=== PATIENT | female | born 1935 | race Caucasian/White ===

== ENCOUNTER 2016-03-08 15:58 | Day surgery (SDC) | payer MEDICARE, BC ==
[2016-03-03 11:54] VITALS: BMI 23.0
[~2016-03-08 15:58] MED LIST: SODIUM CHLORIDE 0.9% 1,000 ML IV SCH; ceFAZolin 1,000 MG in SODIUM CHLORIDE 0.9% IRRIGATIO 250 ML IRRIGATION ONE; ceFAZolin 2 GM in SODIUM CHLORIDE 0.9% 100 ML IVPB ONE
[2016-03-08 16:52] LABS: Glucose,Whole Blood 130 mg/dL (75-99)
[2016-03-08 16:53] VITALS: RESP 18; TEMP 98.2
[2016-03-08 17:13] LABS: Basophils % (A) 1 %; CH 31.5; CHCM 34.1; Eosinophils # (A) 0.4 k/uL (0-0.7); Eosinophils % (A) 5 %; HDW 2.52; Luc # (Auto) 0.23; Luc % (Auto) 3; Lymphocytes # (A) 1.6 k/uL (1.0-4.8); Lymphocytes % (A) 20 %; MCH 30.9 pg (25.0-35.0); MCHC 33.3 g/dL (31.0-37.0); MCV 92.9 fL (80.0-100.0); Mean Platelet Volume 8.3; Monocytes # (A) 0.7 k/uL (0-1.0); Monocytes % (A) 9 %; Neutrophils # (A) 4.9 k/uL (1.3-7.7); Neutrophils % (A) 63 %; RBC 3.88 m/uL (3.80-5.40); WBC 7.8 k/uL (3.8-10.6)
[2016-03-08] MEDS ORDERED: MIDAZOLAM 2 MG/2 ML VIAL ONE (19:42)
[2016-03-08] MEDS ORDERED: MIDAZOLAM 2 MG/2 ML VIAL IV ONE (19:42)
[2016-03-08] MEDS ORDERED: LIDOCAINE 1% INJ 10MG/ML (20 ML MDV) SQ ONE (19:45)
[2016-03-08] MEDS ORDERED: CARVEDILOL 12.5 MG TAB PO STA (19:55)
[2016-03-08 20:21] VITALS: BP 210/98; PULSE 65
--- NOTE | 2016-03-08 20:29 | PCN ---
Cassy Ramirez is an 80-year-old female who had an ICD implant. Subsequently she had the lateral edge of the wound showed some oozing and dehiscence for about 0.5 cm. Oral antibiotics were administered for about 10 days and then she was brought in for wound debridement. Under full sterile precautions and while receiving IV antibiotics, the scab was removed and a centimeter incision was made and on the lateral aspect of the old incision. Bits of sutures that were undissolved were removed. The area was curetted. It was a very superficial knick. There was no evidence of pus, no evidence of infection. The edges were well healed. The wound was closed primarily with silk sutures and dressed. PLAN: Oral antibiotics for 5 days and then stop. Patient will go home today.
== END 2016-03-08 20:21 | disposition home or self-care (01) ==
LOC: CATHEP 15:58
PROVIDERS: ATTEND Internal Medicine Clinical Cardiac Electrophysiology
DX: T81.31XA Disruption of external operation (surgical) wound, not elsewhere classified, initial encounter (principal); Y71.2 Prosthetic and other implants, materials and accessory cardiovascular devices associated with adverse incidents; Z95.810 Presence of automatic (implantable) cardiac defibrillator; Z79.2 Long term (current) use of antibiotics; I42.9 Cardiomyopathy, unspecified; I50.9 Heart failure, unspecified; I25.10 Atherosclerotic heart disease of native coronary artery without angina pectoris; I44.7 Left bundle-branch block, unspecified; I10 Essential (primary) hypertension; E11.9 Type 2 diabetes mellitus without complications; E78.2 Mixed hyperlipidemia; Z82.49 Family history of ischemic heart disease and other diseases of the circulatory system; Z88.5 Allergy status to narcotic agent; Z87.891 Personal history of nicotine dependence
CPT/HCPCS: 12020; 85025; J2250; J0690; J2001

== ENCOUNTER 2017-07-09 20:03 | Inpatient (IN) | payer BC, MEDICARE ==
--- NOTE | 2017-07-09 20:37 | ED ---
General Adult HPI - General Chief complaint: Chest Pain Stated complaint: SOB/Chest Pressure Time Seen by Provider: 07/09/17 20:09 Source: patient, RN notes reviewed, old records reviewed Mode of arrival: wheelchair Limitations: physical limitation - History of Present Illness Initial comments: 81-year-old female presents for evaluation of central chest pain. She describes this pain as a pressure. It has been present over the past 2 days. She states that currently pain is quite minimal. She has had worsening dyspnea over the past several weeks. No cough or fever. She does have history of CAD, no stents placed according to the patient. She has history of pacemaker defibrillator placement. She has been taking her medications as prescribed. Denies lower extremity swelling. Denies calf tenderness. Denies abdominal pain. Denies nausea vomiting or diarrhea. No diaphoresis associated with her pain. Pain is nonradiating, no shoulder or arm pain. - Related Data Home Medications Medication Instructions Recorded Confirmed Ascorbic Acid [Vitamin C] 500 mg PO DAILY 08/12/15 03/08/16 Aspirin 325 mg PO HS 08/12/15 03/08/16 Glimepiride 4 mg PO BID 08/12/15 03/08/16 Irbesartan/Hydrochlorothiazide 1 tab PO QAM 08/12/15 03/08/16 [Irbesartan-Hctz 300-12.5 mg Tb] Multivitamins, Thera [Multivitamin 1 tab PO DAILY 08/12/15 03/08/16 (formulary)] Cholecalciferol [Vitamin D3] 2,000 unit PO DAILY 01/12/16 03/08/16 Cyanocobalamin (Vitamin B-12) 2,000 mcg PO DAILY 01/12/16 03/08/16 [Vitamin B-12] Spironolactone [Aldactone] 25 mg PO DAILY 01/12/16 03/08/16 Previous Rx's Medication Instructions Recorded Carvedilol 25 mg PO BID #90 tab 01/27/16 Allergies Allergy/AdvReac Type Severity Reaction Status Date / Time codeine AdvReac Nausea & Verified 03/08/16 16:31 Vomiting Review of Systems ROS Statement: Those systems with pertinent positive or pertinent negative responses have been documented in the HPI. ROS Other: All systems not noted in ROS Statement are negative. Past Medical History Past Medical History: Cancer, COPD, Diabetes Mellitus, Hyperlipidemia Additional Past Medical History / Comment(s): HX OF BREAST CANCER, CHRONIC BACK PAIN, HX OF STOMACH ULCER., SEE Dr Rodriguez H&P History of Any Multi-Drug Resistant Organisms: None Reported Past Surgical History: AICD, Breast Surgery, Heart Catheterization Additional Past Surgical History / Comment(s): BILATERAL CATARACT. RIGHT MASTECTOMY., MARV SHOULDER SURGERY. VENOGRAM Past Anesthesia/Blood Transfusion Reactions: No Reported Reaction Type of Cardiac Device: AICD Device Placement Date:: 01/2016 Past Psychological History: No Psychological Hx Reported Smoking Status: Former smoker Past Alcohol Use History: Occasional Past Drug Use History: None Reported - Past Family History Daughter(s) Family Medical History: Cancer Additional Family Medical History / Comment(s): BREAST CANCER Son(s) Family Medical History: Coronary Artery Disease (CAD) Additional Family Medical History / Comment(s): CARDIAC STENT. Sister(s) Family Medical History: Cancer Additional Family Medical History / Comment(s): BREAST CANCER. General Exam Limitations: physical limitation General appearance: alert, in no apparent distress Head exam: Present: atraumatic, normocephalic Eye exam: Present: normal appearance, PERRL Neck exam: Present: normal inspection. Absent: tenderness, meningismus Respiratory exam: Present: normal lung sounds bilaterally. Absent: respiratory distress, wheezes Cardiovascular Exam: Present: regular rate, normal rhythm GI/Abdominal exam: Present: soft. Absent: distended, tenderness Extremities exam: Present: normal inspection, full ROM, normal capillary refill. Absent: pedal edema, calf tenderness Neurological exam: Present: alert, oriented X3, CN II-XII intact. Absent: motor sensory deficit Psychiatric exam: Present: normal affect, normal mood Skin exam: Present: warm, dry, intact. Absent: cyanosis, diaphoretic Course Vital Signs 07/09/17 20:11 Temperature 97.1 F L Pulse Rate 71 Respiratory 17 Rate Blood Pressure 185/73 O2 Sat by Pulse 100 Oximetry EKG Findings - EKG Comments: EKG Findings:: EKG paced rhythm ventricular rate 68, NJ interval 172, QRS duration 182, QTC [address] segment elevation Medical Decision Making - Medical Decision Making 81-year-old female presenting with chest pain for the past 2 days. Pain is minimal at the time my evaluation. EKG shows paced rhythm. Laboratory studies are obtained, white blood cell count 6.6, hemoglobin 12.6, sodium is low at 126. Potassium is high 6.1 which is slightly hemolyzed. This is treated with Kayexalate, calcium gluconate, and normal saline. CO2 is low at 17 and anion gap mildly elevated at 15. Troponin and BNP are negative. Chest x-ray is negative for acute findings. Patient will be admitted for telemetry, serial cardiac enzymes, cardiology consult. Sodium and potassium will be rechecked in the morning. - Lab Data Result diagrams: 07/09/17 20:30 07/09/17 20:30 Lab Results 07/09/17 07/09/17 07/09/17 Range/Units 20:30 20:30 20:30 WBC 6.6 (3.8-10.6) k/uL RBC 4.07 (3.80-5.40) m/uL Hgb 12.6 (11.4-16.0) gm/dL Hct 37.3 (34.0-46.0) % MCV 91.7 (80.0-100.0) fL MCH 30.9 (25.0-35.0) pg MCHC 33.8 (31.0-37.0) g/dL RDW 13.8 (11.5-15.5) % Plt Count 224 (150-450) k/uL Neutrophils % 50 % Lymphocytes % 33 % Monocytes % 9 % Eosinophils % 4 % Basophils % 0 % Neutrophils # 3.3 (1.3-7.7) k/uL Lymphocytes # 2.1 (1.0-4.8) k/uL Monocytes # 0.6 (0-1.0) k/uL Eosinophils # 0.3 (0-0.7) k/uL Basophils # 0.0 (0-0.2) k/uL PT (9.0-12.0) sec INR (<1.2) APTT (22.0-30.0) sec Sodium 126 L (137-145) mmol/L Potassium 6.1 H (3.5-5.1) mmol/L Chloride 94 L (98-107) mmol/L Carbon Dioxide 17 L (22-30) mmol/L Anion Gap 15 mmol/L BUN 23 H (7-17) mg/dL Creatinine 0.60 (0.52-1.04) mg/dL Est GFR (CKD-EPI)AfAm >90 (>60 ml/min/1.73 sqM) Est GFR (CKD-EPI)NonAf 86 (>60 ml/min/1.73 sqM) Glucose 184 H (74-99) mg/dL Calcium 9.0 (8.4-10.2) mg/dL Magnesium 2.1 (1.6-2.3) mg/dL Total Bilirubin 0.9 (0.2-1.3) mg/dL AST 56 H (14-36) U/L ALT 31 (9-52) U/L Alkaline Phosphatase 58 (38-126) U/L Total Creatine Kinase 69 (30-135) U/L CK-MB (CK-2) 0.7 (0.0-2.4) ng/mL CK-MB (CK-2) Rel Index 1.0 Troponin I <0.012 (0.000-0.034) ng/mL NT-Pro-B Natriuret Pep pg/mL Total Protein 7.1 (6.3-8.2) g/dL Albumin 4.5 (3.5-5.0) g/dL Lipase 136 (23-300) U/L Acetone, Qual Negative (Negative) 07/09/17 07/09/17 Range/Units 20:30 20:30 WBC (3.8-10.6) k/uL RBC (3.80-5.40) m/uL Hgb (11.4-16.0) gm/dL Hct (34.0-46.0) % MCV (80.0-100.0) fL MCH (25.0-35.0) pg MCHC (31.0-37.0) g/dL RDW (11.5-15.5) % Plt Count (150-450) k/uL Neutrophils % % Lymphocytes % % Monocytes % % Eosinophils % % Basophils % % Neutrophils # (1.3-7.7) k/uL Lymphocytes # (1.0-4.8) k/uL Monocytes # (0-1.0) k/uL Eosinophils # (0-0.7) k/uL Basophils # (0-0.2) k/uL PT 10.9 (9.0-12.0) sec INR 1.1 (<1.2) APTT 24.7 (22.0-30.0) sec Sodium (137-145) mmol/L Potassium (3.5-5.1) mmol/L Chloride (98-107) mmol/L Carbon Dioxide (22-30) mmol/L Anion Gap mmol/L BUN (7-17) mg/dL Creatinine (0.52-1.04) mg/dL Est GFR (CKD-EPI)AfAm (>60 ml/min/1.73 sqM) Est GFR (CKD-EPI)NonAf (>60 ml/min/1.73 sqM) Glucose (74-99) mg/dL Calcium (8.4-10.2) mg/dL Magnesium (1.6-2.3) mg/dL Total Bilirubin (0.2-1.3) mg/dL AST (14-36) U/L ALT (9-52) U/L Alkaline Phosphatase (38-126) U/L Total Creatine Kinase (30-135) U/L CK-MB (CK-2) (0.0-2.4) ng/mL CK-MB (CK-2) Rel Index Troponin I (0.000-0.034) ng/mL NT-Pro-B Natriuret Pep 111 pg/mL Total Protein (6.3-8.2) g/dL Albumin (3.5-5.0) g/dL Lipase (23-300) U/L Acetone, Qual (Negative) Disposition Clinical Impression: Chest pain, Hyponatremia, Hyperkalemia Disposition: ADMITTED IP TO THIS [facility] Condition: Stable Is patient prescribed a controlled substance at d/c from ED?: No Referrals: Reji Montgomery MD [Primary Care Provider] - 1-2 days Decision to Admit Reason: Admit from EC Decision Date: 07/09/17 Decision Time: 21:44
[2017-07-09 20:47] LABS: Basophils % (A) 0 %; Eosinophils # (A) 0.3 k/uL (0-0.7); Eosinophils % (A) 4 %; HCT 37.3 % (34.0-46.0); HGB 12.6 gm/dL (11.4-16.0); Lymphocytes # (A) 2.1 k/uL (1.0-4.8); Lymphocytes % (A) 33 %; MCH 30.9 pg (25.0-35.0); MCHC 33.8 g/dL (31.0-37.0); MCV 91.7 fL (80.0-100.0); Mean Platelet Volume 8.4; Monocytes # (A) 0.6 k/uL (0-1.0); Monocytes % (A) 9 %; Neutrophils # (A) 3.3 k/uL (1.3-7.7); Neutrophils % (A) 50 %; Platelet Count 224 k/uL (150-450); RBC 4.07 m/uL (3.80-5.40); RDW 13.8 % (11.5-15.5); WBC 6.6 k/uL (3.8-10.6)
--- NOTE | 2017-07-09 20:48 | XR ---
EXAMINATION TYPE: XR chest 2V DATE OF EXAM: 07/09/2017 COMPARISON: 01/27/2016 INDICATION: Chest pain TECHNIQUE: Frontal and lateral views of the chest are obtained. FINDINGS: The heart size is normal. The pulmonary vasculature is normal. The lungs are clear. Electronic device overlies left chest. IMPRESSION: 1. No acute pulmonary process.
[2017-07-09 20:53] LABS: INR 1.1 (<1.2); Partial Thromboplastin Time 24.7 sec (22.0-30.0); Prothrombin Time 10.9 sec (9.0-12.0)
[2017-07-09 20:56] LABS: Anion Gap 15 mmol/L; Carbon Dioxide 17 mmol/L (22-30); Chloride 94 mmol/L (98-107); Glucose 184 mg/dL (74-99); Lipase 136 U/L (23-300); Sodium 126 mmol/L (137-145)
[2017-07-09 20:57] LABS: Potassium 6.1 mmol/L (3.5-5.1)
[2017-07-09 20:58] LABS: ALT 31 U/L (9-52); AST 56 U/L (14-36); Albumin 4.5 g/dL (3.5-5.0); Alkaline Phosphatase 58 U/L (38-126); Blood Urea Nitrogen 23 mg/dL (7-17); Magnesium 2.1 mg/dL (1.6-2.3); Total Bilirubin 0.9 mg/dL (0.2-1.3); Total Protein 7.1 g/dL (6.3-8.2)
[2017-07-09 21:06] LABS: Creatine Kinase 69 U/L (30-135)
[2017-07-09 21:19] LABS: Creatine Kinase MB 0.7 ng/mL (0.0-2.4); Troponin I <0.012 ng/mL (0.000-0.034)
[2017-07-09] MEDS ORDERED: SODIUM POLYSTYRENE SULFONATE 15 GM/60 ML BOTTLE PO ONE (21:28)
[2017-07-09] MEDS ORDERED: CALCIUM CHLORIDE 1,000 MG in SODIUM CHLORIDE 0.9% 100 ML IV ONE (21:28)
[2017-07-09] MEDS ORDERED: NALOXONE 0.4 MG/ML 1 ML VIAL IV PRN (21:38)
[2017-07-09] MEDS ORDERED: ASPIRIN 325 MG TAB PO STA (21:41)
[2017-07-09] MEDS: SODIUM CHLORIDE 0.9% 1,000 ML IV SCH (22:00)
[2017-07-09 22:42] VITALS: RESP 18
[2017-07-09 23:15] VITALS: BMI 22.1
[2017-07-10 06:09] LABS: Glucose,Whole Blood 82 mg/dL (75-99)
[2017-07-10 06:39] LABS: Basophils % (A) 1 %; Eosinophils # (A) 0.3 k/uL (0-0.7); Eosinophils % (A) 6 %; HGB 13.2 gm/dL (11.4-16.0); Lymphocytes # (A) 1.7 k/uL (1.0-4.8); Lymphocytes % (A) 34 %; MCH 31.4 pg (25.0-35.0); Mean Platelet Volume 7.4; Monocytes # (A) 0.5 k/uL (0-1.0); Monocytes % (A) 10 %; Neutrophils # (A) 2.3 k/uL (1.3-7.7); Neutrophils % (A) 45 %; Platelet Count 219 k/uL (150-450); RBC 4.22 m/uL (3.80-5.40); RDW 14.6 % (11.5-15.5); WBC 5.2 k/uL (3.8-10.6)
[2017-07-10 06:49] LABS: ALT 40 U/L (9-52); AST 29 U/L (14-36); Albumin 4.1 g/dL (3.5-5.0); Alkaline Phosphatase 62 U/L (38-126); Anion Gap 15 mmol/L; Blood Urea Nitrogen 16 mg/dL (7-17); Calcium 9.3 mg/dL (8.4-10.2); Carbon Dioxide 21 mmol/L (22-30); Chloride 101 mmol/L (98-107); Glucose 78 mg/dL (74-99); Potassium 3.6 mmol/L (3.5-5.1); Sodium 137 mmol/L (137-145); Total Bilirubin 0.3 mg/dL (0.2-1.3); Total Protein 6.5 g/dL (6.3-8.2)
[2017-07-10 06:59] LABS: Creatine Kinase 51 U/L (30-135)
[2017-07-10 07:12] LABS: Troponin I <0.012 ng/mL (0.000-0.034)
[2017-07-10] MEDS ORDERED: ACETAMINOPHEN TAB 500 MG TAB PO PRN (08:04)
[2017-07-10 08:49] LABS: Creatine Kinase 49 U/L (30-135)
[2017-07-10 09:02] LABS: Creatine Kinase MB 0.9 ng/mL (0.0-2.4); Troponin I <0.012 ng/mL (0.000-0.034)
[2017-07-10] MEDS: SODIUM CHLORIDE 0.9% 1,000 ML IV SCH (11:07)
[2017-07-10 11:41] VITALS: BP 140/64; PULSE 68; TEMP 98
[2017-07-10 11:45] LABS: Glucose,Whole Blood 189 mg/dL (75-99)
[2017-07-10] MEDS ORDERED: CHOLECALCIFEROL 1,000 UNIT TAB PO SCH (15:00)
[2017-07-10] MEDS ORDERED: LOSARTAN 50 MG TAB PO SCH (15:00)
[2017-07-10] MEDS ORDERED: ASPIRIN 81 MG PO SCH (15:00)
[2017-07-10] MEDS ORDERED: HYDROCHLOROTHIAZIDE 12.5 MG CAP PO SCH (15:00)
[2017-07-10] MEDS ORDERED: MULTIVITAMINS, THERA 1 EACH TAB PO SCH (15:00)
[2017-07-10] MEDS ORDERED: GLIMEPIRIDE 4 MG TAB PO SCH (15:00)
[2017-07-10] MEDS ORDERED: ASCORBIC ACID 500 MG TAB PO SCH (15:00)
[2017-07-10] MEDS ORDERED: CYANOCOBALAMIN 500 MCG TAB PO SCH (15:00)
--- NOTE | 2017-07-10 15:18 | HP ---
HISTORY AND PHYSICAL Please note this is a combination of history and physical and discharge summary. HISTORY AND PHYSICAL/DISCHARGE SUMMARY: CHIEF COMPLAINTS: Shortness of breath, chest pain, as well as hyponatremia. HISTORY OF PRESENT ILLNESS: This 81-year-old woman with a past medical history of COPD, diabetes, hypertension, hyperlipidemia, AICD being followed by Dr. Montgomery in the outpatient setting was complaining of shortness of breath and chest discomfort and patient came to [facility] and was admitted for further evaluation and treatment. Shortness of breath was exertional and chest discomfort was mostly felt in the anterior part of the chest. Otherwise the patient also had sodium was 127. Sodium improved after admission. Cardiology saw the patient. Cardiology is planning outpatient followup at this time. There is no history of fever, rigors or chills. No history of headache, loss of consciousness, seizures. PAST MEDICAL HISTORY: COPD, diabetes, hyperlipidemia, AICD. MEDICATIONS: Prior to admission include home medications are: 1. Aldactone 25 mg p.o. daily. 2. Nasal spray. 3. Multivitamins. 6. Vitamin D3. 7. Coreg. 8. Aspirin 320 mg daily. 9. Vitamin C. 10.Tylenol. ALLERGIES: CODEINE. FAMILY HISTORY: History of breast cancer in the family. SOCIAL HISTORY: Occasional alcohol. Previous history of smoking. REVIEW OF SYSTEMS: ENT: Diminished vision. Diminished hearing. CARDIOVASCULAR: S1, S2 muffled. RESPIRATORY: No cough or hemoptysis. GI: No nausea or vomiting. : No dysuria. Nervous system: No numbness or weakness. Allergy/Immunology: No asthma or hayfever. MUSCULOSKELETAL: As mentioned earlier. Hematology/Oncology: No history of anemia. Endocrine: No history of diabetes or hypothyroidism. Constitutional: As mentioned earlier. Dermatology: Negative. Rheumatology: Negative. Psychiatry: As mentioned earlier. PHYSICAL EXAM: Alert and oriented x3. Pulse 68. Blood pressure 140/64, respiration 18. Temperature 98 degrees, pulse ox 100% on room air. HEENT: Conjunctivae normal. NECK: No jugular venous distention. CARDIOVASCULAR: S1, S2 muffled. RESPIRATORY: Breath sounds diminished in the the bases. A few scattered rhonchi and crackles. Expiratory wheezing also present. ABDOMEN: Soft, nontender. No mass palpable. LEGS: No edema no swelling. NERVOUS SYSTEM: Higher functions as mentioned earlier, moves all 4 limbs, no focal deficits. LYMPHATICS: No lymph nodes palpable in the neck, axillae or groin. SKIN: No ulcer, rashes or bleeding. LABS: Sodium 120, potassium 6.1, improved to 137 and 3.6. Other labs are noted. ASSESSMENT: 1. Chest pain possible unstable angina. 2. Chronic obstructive pulmonary disease. 3. Hyponatremia. 4. Mild hypokalemia improved. 5. History of chronic obstructive pulmonary disease. 6. Diabetes type 2. 7. Hyperlipidemia. 8. AICD. 9. History of cardiac catheterization. RECOMMENDATIONS AND DISCUSSION: This 81-year-old woman who presented with multiple complex medical issues, we will monitor the patient closely, continue the current medications, management and symptomatic treatment. I recommend resume the home medications and add Combivent and as well as Cozaar to the current regimen. Avoid diuretics. Repeat labs with Dr. Montgomery. Otherwise, cardiology saw the patient, cleared the patient for discharge. The patient will be discharged in stable condition with guarded prognosis. Please see the medications for medication orders. MMODL / IJN: [id number] / MTDD
[2017-07-10] MEDS ORDERED: CARVEDILOL 12.5 MG TAB PO SCH (17:30)
--- NOTE | 2017-07-10 22:00 | CONS ---
CONSULTATION This is an 81-year-old lady who has a history of a Bi-V ICD who came into the hospital with an episode of shortness of breath. She also had a sharp pain in the chest. The quality of the pain seemed atypical. The pain was very brief. Her shortness of breath has also resolved. She is resting comfortably without symptoms. This lady has a history of nonischemic cardiac cardiomyopathy with mild CAD and she has a biventricular ICD placed by Dr. Rodriguez. She sees Dr. Cash in the outpatient setting. She is resting comfortably without symptoms at the time of my evaluation. Her breathing has improved a lot. She has about a 2-day history of shortness of breath and I am recommending that we perform a D-dimer as well. If this is normal, she can be discharged and see Dr. Cash. The patient is clinically not in heart failure and in no distress whatsoever. PAST MEDICAL HISTORY: 1. Nonischemic cardiomyopathy. 2. Status post Bi-V ICD. 3. Type 2 diabetes mellitus. 4. Hypertension. 5. No evidence of any prior myocardial infarction. The patient also has a prior history of some breast surgery, ICD and unremarkable cardiac cath. She has also shoulder surgery and also mastectomy on the right side. MEDICATIONS: At home include Diovan hydrochlorothiazide 312.5, aspirin 325 mg daily, glimepiride 4 mg b.i.d., vitamin supplements, ascorbic acid and Aldactone 25 mg daily. ALLERGIES: CODEINE. REVIEW OF SYSTEMS: Unremarkable other than above-mentioned facts. EXAMINATION: Blood pressure is 140/70, pulse rate is 68 per minute, regular. HEENT: Unremarkable. Fundus was not examined by me. NECK: Supple. There is JVD of 1 cm. No carotid bruit. Heart exam reveals S1, S2 heard normally, short systolic murmur is audible. Lungs reveal decent air entry. Abdomen is soft, nontender. Lower extremities reveal diminished pulses. No edema. Central nervous system is normal. EKG revealed a sinus mechanism with some ventricular paced beats. LABORATORY DATA: Revealed that her troponin levels are normal. Her BNP is normal. Electrolyte profile is normal. D-dimer also has been checked and is normal. IMPRESSION: 1. Episode of shortness of breath of unclear etiology, does not suggest to be in congestive heart failure. 2. History of nonischemic cardiomyopathy. 3. Status post Bi-V ICD. 4. Type 2 diabetes mellitus. RECOMMENDATIONS: I recommended that we check a D-dimer and if this was normal to increase activity and discharge and she is scheduled to see Dr. Cash in the next few days. Advised her to keep the appointment. It appears her symptoms are very nondescript. There is an element of anxiety as well. However, she can be discharged today on the same medical regimen and see Dr. Cash in the outpatient setting and the D-dimer has been checked and has been found to be normal. Thank you very much for the consult. MMODL / IJN: [id number] /
== END 2017-07-10 15:02 | disposition home or self-care (01) | DRG 303 ==
LOC: EC 20:03 → 6SEL 21:41
PROVIDERS: ADMIT Family Medicine; ATTEND Family Medicine
DX: I25.110 Atherosclerotic heart disease of native coronary artery with unstable angina pectoris (principal); E87.1 Hypo-osmolality and hyponatremia; J44.9 Chronic obstructive pulmonary disease, unspecified; I42.9 Cardiomyopathy, unspecified; E11.9 Type 2 diabetes mellitus without complications; I10 Essential (primary) hypertension; E78.5 Hyperlipidemia, unspecified; E87.6 Hypokalemia; Z95.810 Presence of automatic (implantable) cardiac defibrillator; Z79.82 Long term (current) use of aspirin; Z79.899 Other long term (current) drug therapy; Z88.5 Allergy status to narcotic agent; Z80.3 Family history of malignant neoplasm of breast; Z87.891 Personal history of nicotine dependence
CPT/HCPCS: 36415; 71046; 80053; 82009; 82550; 82553; 83690; 83735; 83880; 84484; 85025; 85379; 85610; 85730; 93005; 96365; 99285

== ENCOUNTER → 2018-10-08 | Outpatient (CLI) | payer MEDICARE ==
[2018-10-08 14:05] LABS: Calcium 10.1 mg/dL (8.4-10.2); Potassium 4.6 mmol/L (3.5-5.1)
--- NOTE | 2018-10-08 14:50 | CT ---
EXAMINATION TYPE: CT brain wo/w con DATE OF EXAM: 10/08/2018 COMPARISON: None INDICATION: left hemispheric slowing DLP: 2089 mGycm, Automated exposure control for dose reduction was used. CONTRAST: None CT of the brain is performed utilizing 3 mm thick sections through the posterior fossa and 3 mm thick sections through the remaining calvarium. Study is performed within 24 hours of arrival to the hosp ital. No abnormal hyperdensity is present to suggest an acute intracranial hemorrhage. No mass lesion is evident. As the left basal ganglion calcification is present. No acute infarcts are evident. Very subtle minimal periventricular white matter ischemic type changes are present. Ventricles and sulci are appropriate for the patient age. Paranasal sinuses and mastoid air cells within the [id number]-ydcu are clear. IMPRESSIONS: 1. Minimal periventricular white matter changes. No acute intracranial process evident.
== END | disposition home or self-care (01) ==
LOC: RADCTMAIN 13:08
PROVIDERS: ATTEND Psychiatry & Neurology Neurology
DX: R90.89 Other abnormal findings on diagnostic imaging of central nervous system (principal); R47.81 Slurred speech
CPT/HCPCS: 82747; 80048; 85652; 82607; 82550; 84443; 86038; 70470; 36415; Q9967

== ENCOUNTER → 2018-10-26 | Outpatient (CLI) | payer MEDICARE ==
--- NOTE | 2018-10-28 20:07 | US ---
EXAMINATION TYPE: US carotid duplex BILAT DATE OF EXAM: 10/26/2018 COMPARISON: NONE CLINICAL HISTORY: 83-year-old female I65.22 Carotid stenosis. TECHNIQUE: Carotid duplex ultrasound examination. Indirect Doppler criteria is utilized. FINDINGS: EXAM MEASUREMENTS: RIGHT: Peak Systolic Velocity (PSV) cm/sec ----- Right CCA: 33.0 ----- Right ICA: 70.7 ----- Right ECA: 33.3 ICA/CCA ratio: 2.1 RIGHT: End Diastole cm/sec ----- Right CCA: 11.3 ----- Right ICA: 24.7 ----- Right ECA: 4.4 LEFT: Peak Systolic Velocity (PSV) cm/sec ----- Left CCA: 46.2 ----- Left ICA: 58.5 ----- Left ECA: 62.1 ICA/CCA ratio: 1.3 LEFT: End Diastole cm/sec ----- Left CCA: 13.3 ----- Left ICA: 19.3 ----- Left ECA: 6.2 VERTEBRALS (direction of flow): Right Vertebral: Antegrade Left Vertebral: Antegrade Rhythm: Normal Sonography notes: Bilateral intimal thickening, plaque bilateral bulb, no elevated velocities. IMPRESSION: 1. Moderate atherosclerotic change at the right bifurcation [id number] on the left. 2. Velocities do not suggest a hemodynamically significant stenosis of either ICA. Criteria for Assigning % of Stenosis / Diameter reduction (Estimation based on the indirect measurements of the internal carotid artery velocities (ICA PSV). 1. Normal (no stenosis)=ICA PSV < 125 cm/s: ratio < 2.0: ICA EDV<40 cm/s. 2. Less than 50% stenosis=ICA PSV < 125 cm/s: ratio < 2.0: ICA EDV<40 cm/s. 3. 50 to 69% stenosis=ICA PSV of 125 to 230 cm/s: ration 2.0 ? 4.0: ICA EDV 40-100 cm/s. 4. Greater than 70% stenosis to near occlusion= ICA PSV > 230 cm/s: ratio > 4.0: ICA EDV > 100 cm/s. 5. Near occlusion= ICA PSV velocities may be low or undetectable: variable ratio and ICA EDV. 6. Total occlusion=unable to detect flow.
== END | disposition home or self-care (01) ==
LOC: RADUSWWP 15:59
PROVIDERS: ATTEND Psychiatry & Neurology Neurology
DX: I65.23 Occlusion and stenosis of bilateral carotid arteries (principal)
CPT/HCPCS: 93880

== ENCOUNTER 2019-12-19 11:37 | Inpatient (IN) | payer MEDICARE ==
[2019-12-19 12:17] LABS: Basophils % (A) 1 %; Eosinophils # (A) 0.2 k/uL (0-0.7); Eosinophils % (A) 4 %; HCT 40.5 % (34.0-46.0); HGB 13.1 gm/dL (11.4-16.0); Lymphocytes # (A) 1.6 k/uL (1.0-4.8); Lymphocytes % (A) 25 %; MCH 31.9 pg (25.0-35.0); MCHC 32.2 g/dL (31.0-37.0); Mean Platelet Volume 8.3; Monocytes # (A) 0.6 k/uL (0-1.0); Monocytes % (A) 10 %; Neutrophils # (A) 3.6 k/uL (1.3-7.7); Neutrophils % (A) 58 %; Platelet Count 259 k/uL (150-450); RBC 4.09 m/uL (3.80-5.40); RDW 13.9 % (11.5-15.5); WBC 6.2 k/uL (3.8-10.6)
[2019-12-19 12:35] LABS: ALT 25 U/L (4-34); AST 36 U/L (14-36); African American GFR (CKD) >90 (>60 ml/min/1.73 sqM); Albumin 4.2 g/dL (3.5-5.0); Alkaline Phosphatase 76 U/L (38-126); Anion Gap 4 mmol/L; Blood Urea Nitrogen 14 mg/dL (7-17); Calcium 8.9 mg/dL (8.4-10.2); Carbon Dioxide 26 mmol/L (22-30); Chloride 102 mmol/L (98-107); Glucose 260 mg/dL (74-99); Magnesium 1.6 mg/dL (1.6-2.3); Non-African American GFR(CKD) 88 (>60 ml/min/1.73 sqM); Sodium 132 mmol/L (137-145); Total Bilirubin 0.9 mg/dL (0.2-1.3); Total Protein 6.7 g/dL (6.3-8.2)
[2019-12-19 12:38] LABS: Potassium 4.8 mmol/L (3.5-5.1)
[2019-12-19 12:44] LABS: INR 1.1 (<1.2); Partial Thromboplastin Time 24.7 sec (22.0-30.0); Prothrombin Time 11.4 sec (9.0-12.0)
--- NOTE | 2019-12-19 12:59 | XR ---
EXAMINATION TYPE: XR chest 2V DATE OF EXAM: 12/19/2019 COMPARISON: 07/09/2017 HISTORY: 84-year-old female with weakness TECHNIQUE: AP and lateral views FINDINGS: Left anterior chest wall AICD generator with right atrial, right ventricular, and coronary sinus lead s. Heart upper limits of normal in size. Aorta and pulmonary vasculature within normal limits. Kyphot ic positioning. Hazy mid to lower lung densities relating to overlying soft tissue. No consolidation or pleural effusion is seen. IMPRESSION: Kyphotic positioning. Borderline heart size. 3-lead AICD generator. No definite acute process.
--- NOTE | 2019-12-19 13:10 | CT ---
EXAMINATION TYPE: CT brain wo con DATE OF EXAM: 12/19/2019 COMPARISON: 10/08/2018 HISTORY: Weakness and fatigue. CT DLP: 1024.4 mGycm Automated exposure control for dose reduction was used. FINDINGS: Mild to moderate generalized degenerative change. Low-attenuation the white matter is nonsignificantl y most typical remote microvascular ischemia. No acute hemorrhage. No mass effect. No midline shift. Calcifications in the basal ganglia noted. Cm varium intact. Craniocervical junction maintained. Tiny area of low attenuation within the basal gang jos bilaterally most typical remote lacunar infarct. Tiny area of low attenuation the left thalamus m ost typical of remote lacunar infarct. Abnormal attenuation within the right temporal lobe and left cerebellar hemisphere. This was not seen on the prior exam. Area of ischemic change in the differential diagnosis. IMPRESSION: 1. Low attenuation within the right temporal lobe and left cerebellum of indeterminate age may repres ent recent ischemia. Recommend correlation with MRI and clinical correlation. 2. No acute hemorrhage. 3. Degenerative and nonspecific white matter changes most typical remote ischemia.
[2019-12-19] MEDS ORDERED: ASPIRIN 325 MG TAB PO STA (13:19)
[2019-12-19 13:39] LABS: Appearance,Urine Clear (Clear); Bilirubin,Urine Negative (Negative); Blood,Urine Negative (Negative); Color,Urine Colorless; Glucose,Urine (UA) 3+ (Negative); Ketones,Urine Negative (Negative); Leukocyte Esterase,Urine Negative (Negative); Nitrite,Urine Negative (Negative); Protein,Urine Negative (Negative); Specific Gravity,Urine 1.005 (1.001-1.035); Urobilinogen,Urine <2.0 mg/dL (<2.0)
--- NOTE | 2019-12-19 14:02 | ED ---
General Adult HPI - General Source: patient, family, EMS, RN notes reviewed, old records reviewed Mode of arrival: EMS <Andrea Carmona - Last Filed: 12/19/19 14:44> <Tobi Aguilar - Last Filed: 12/20/19 09:09> - General Chief complaint: Weakness Stated complaint: Weakness Time Seen by Provider: 12/19/19 11:42 - History of Present Illness Initial comments: 84-year-old female patient past history significant for pacemaker, diabetes, COPD density for generalized weakness. Patient reports that she woke up this morning she was feeling just generally weak. Denies chest pain shortness of breath denies any focal area of weakness or unilateral weakness or paresthesias. Denies any headache. Denies any other acute complaints. Systemic: Pt denies fatigue, fever/chills, rash. Pt denies weakness, night sweats, weight loss. Neuro: Pt denies headache, visual disturbances, syncope or pre-syncope. HEENT: Pt denies ocular discharge or irritation, otalgia, rhinorrhea, pharyngitis or notable lymphadenopathy. Cardiopulmonary: Pt denies chest pain, SOB, heart palpitations, dyspnea on exertion. Abdominal/GI: Pt denies abdominal pain, n/v/d. : Pt denies dysuria, burning w/ urination, frequency/urgency. Denies new onset urinary or bowel incontinence. MSK: Pt denies myalgia, loss of strength or function in extremities. (Andrea Carmona) - Related Data Home Medications Medication Instructions Recorded Confirmed Glimepiride 4 mg PO HS 08/12/15 12/19/19 Multivitamins, Thera [Multivitamin 1 tab PO HS 08/12/15 12/19/19 (formulary)] Ascorbic Acid [Vitamin C] 500 mg PO DAILY 12/19/19 12/19/19 Atorvastatin [Lipitor] 20 mg PO Q48H 12/19/19 12/19/19 Carvedilol 25 mg PO HS 12/19/19 12/19/19 Cholecalciferol [Vitamin D3 (25 1,000 unit PO HS 12/19/19 12/19/19 Mcg = 1000 Iu)] Cyanocobalamin (Vitamin B-12) 2,500 mcg PO HS 12/19/19 12/19/19 [Vitamin B-12] Ferrous Sulfate [Iron (65 MG 325 mg PO HS 12/19/19 12/19/19 Elemental)] Fish Oil/Dha/Epa [Fish Oil 1,200 1 tab PO HS 12/19/19 12/19/19 mg Fish Oil] Memantine [Namenda] 10 mg PO HS 12/19/19 12/19/19 Mv-Min/Folic/Vit K/Lut/Luzz403 1 tab PO HS 12/19/19 12/19/19 [Alive Women's 50 Plus Tablet] Naproxen Sodium [Aleve] 220 mg PO HS PRN 12/19/19 12/19/19 Potassium Gluconate 99 mg PO HS 12/19/19 12/19/19 Spironolactone [Aldactone] 25 mg PO HS 12/19/19 12/19/19 Ubidecarenone [Co Q-10] 200 mg PO HS 12/19/19 12/19/19 Zinc Gluconate [Zinc] 50 mg PO HS 12/19/19 12/19/19 metFORMIN HCL 500 mg PO HS 12/19/19 12/19/19 Allergies Allergy/AdvReac Type Severity Reaction Status Date / Time codeine AdvReac Nausea & Verified 12/19/19 14:36 Vomiting Review of Systems ROS Other: All systems not noted in ROS Statement are negative. <Andrea Carmona - Last Filed: 12/19/19 14:44> ROS Other: All systems not noted in ROS Statement are negative. <Tobi Aguilar - Last Filed: 12/20/19 09:09> ROS Statement: Those systems with pertinent positive or pertinent negative responses have been documented in the HPI. Past Medical History Past Medical History: Cancer, COPD, Diabetes Mellitus, Hyperlipidemia Additional Past Medical History / Comment(s): HX OF BREAST CANCER, CHRONIC BACK PAIN, HX OF STOMACH ULCER., SEE Dr Rodriguez H&P History of Any Multi-Drug Resistant Organisms: None Reported Past Surgical History: AICD, Breast Surgery, Heart Catheterization, Pacemaker Additional Past Surgical History / Comment(s): BILATERAL CATARACT. RIGHT MASTE CTOMY., MARV SHOULDER SURGERY. VENOGRAM Past Anesthesia/Blood Transfusion Reactions: No Reported Reaction Type of Cardiac Device: AICD Device Placement Date:: 01/2016 Past Psychological History: No Psychological Hx Reported Past Alcohol Use History: Occasional Past Drug Use History: None Reported - Past Family History Daughter(s) Family Medical History: Cancer Additional Family Medical History / Comment(s): BREAST CANCER Son(s) Family Medical History: Coronary Artery Disease (CAD) Additional Family Medical History / Comment(s): CARDIAC STENT. Sister(s) Family Medical History: Cancer Additional Family Medical History / Comment(s): BREAST CANCER. <Andrea Carmona - Last Filed: 12/19/19 14:44> General Exam <Andrea Carmona - Last Filed: 12/19/19 14:44> - General Exam Comments Initial Comments: Constitutional: NAD, AOX3, Pt has pleasant affect. HEENT: NC/AT, trachea midline, neck supple, no lymphadenopathy. External ears appear normal, without discharge. Mucous membranes moist. Eyes PERRLA, EOM intact. There is no scleral icterus. No pallor noted. Cardiopulmonary: RRR, no murmurs, rubs or gallops, no JVD noted. Lungs CTAB in anterior and posterior [place]. No peripheral edema. Abdominal exam: Abdomen soft and non-distended. Abdomen non-tender to palpation in all 4 quadrants. Bowel sounds active in LLQ. No hepatosplenomegaly. No ecchymosis Neuro: CN II-XII intact. No nuchal rigidity. No raccon eyes, no carrillo sign. NIH 0. MSK: Full active ROM in upper and lower extremities, 5/5 stregnth. (Andrea Carmona) Course Vital Signs 12/19/19 12/19/19 12/19/19 11:39 11:49 12:30 Temperature 97.4 F L Pulse Rate 74 58 L Respiratory 18 18 Rate Blood Pressure 206/82 186/65 O2 Sat by Pulse 99 99 Oximetry 12/19/19 12/19/19 12/19/19 13:30 14:00 15:00 Temperature Pulse Rate 61 75 Respiratory 18 18 17 Rate Blood Pressure 147/61 156/69 173/65 O2 Sat by Pulse 100 98 100 Oximetry 12/19/19 12/19/19 12/19/19 15:30 16:00 16:30 Temperature Pulse Rate 72 Respiratory 16 Rate Blood Pressure 166/60 147/54 150/73 O2 Sat by Pulse 100 100 99 Oximetry 12/19/19 12/19/19 12/19/19 17:00 17:30 18:00 Temperature Pulse Rate 70 74 Respiratory 18 Rate Blood Pressure 152/57 150/65 136/112 O2 Sat by Pulse 98 99 Oximetry 12/19/19 12/19/19 12/19/19 18:30 19:00 19:30 Temperature Pulse Rate 71 Respiratory Rate Blood Pressure 176/64 164/55 158/74 O2 Sat by Pulse 96 98 97 Oximetry 12/19/19 12/19/19 20:00 20:30 Temperature Pulse Rate 73 Respiratory 18 Rate Blood Pressure 154/68 165/78 O2 Sat by Pulse 98 98 Oximetry Medical Decision Making - Lab Data Result diagrams: 12/19/19 12:02 12/19/19 12:02 - EKG Data -: EKG Interpreted by Me (and Dr. Aguilar ) <Andrea Carmona - Last Filed: 12/19/19 14:44> - Lab Data Result diagrams: 12/19/19 12:02 12/19/19 12:02 <Tobi Aguilar - Last Filed: 12/20/19 09:09> - Medical Decision Making 84 year old female patient to ED for generalized weakness. Patient reports that she woke up weak at 9am. She denies any unilateral weakness, facial droop, paresthesias. Patient vital signs displayed mild hypertension. Physical exam negative for acute pathology. Laboratory Investigations reveal mild hyperglycemia. CXR negative for acute process. Brain CT displayed possible recent ischemia in the tempral lobe. No acute hemorrhage, CTA is limited but there is unable to excluisde a 4x3 mm right MCA aneursym. Patient was adminisreed an aspirin and will be admitted for neurology evaluation. Case discussed and pt seen by Dr. Aguilar. (Andrea Carmona) 34-year-old female history of dementia, history is somewhat limited although according to her daughter who is at bedside she has had increased weakness over the past several weeks. She woke this morning with increased weakness, no lateralizing symptoms. Head CT performed which does show subacute CVA. Compute d tomography geography has been ordered. Patient has been admitted to Dr. Montgomery who is aware of the patient and will be evaluated by neurology. (Tobi Aguilar) - Lab Data Lab Results 11/05/20 11/05/20 11/05/20 Range/Units 12:02 12:02 12:02 WBC 6.2 (3.8-10.6) k/uL RBC 4.09 (3.80-5.40) m/uL Hgb 13.1 (11.4-16.0) gm/dL Hct 40.5 (34.0-46.0) % MCV 99.0 (80.0-100.0) fL MCH 31.9 (25.0-35.0) pg MCHC 32.2 (31.0-37.0) g/dL RDW 13.9 (11.5-15.5) % Plt Count 259 (150-450) k/uL Neutrophils % 58 % Lymphocytes % 25 % Monocytes % 10 % Eosinophils % 4 % Basophils % 1 % Neutrophils # 3.6 (1.3-7.7) k/uL Lymphocytes # 1.6 (1.0-4.8) k/uL Monocytes # 0.6 (0-1.0) k/uL Eosinophils # 0.2 (0-0.7) k/uL Basophils # 0.0 (0-0.2) k/uL PT 11.4 (9.0-12.0) sec INR 1.1 (<1.2) APTT 24.7 (22.0-30.0) sec Sodium (137-145) mmol/L Potassium (3.5-5.1) mmol/L Chloride (98-107) mmol/L Carbon Dioxide (22-30) mmol/L Anion Gap mmol/L BUN (7-17) mg/dL Creatinine (0.52-1.04) mg/dL Est GFR (CKD-EPI)AfAm (>60 ml/min/1.73 sqM) Est GFR (CKD-EPI)NonAf (>60 ml/min/1.73 sqM) Glucose (74-99) mg/dL Plasma Lactic Acid Barry (0.7-2.0) mmol/L Calcium (8.4-10.2) mg/dL Magnesium (1.6-2.3) mg/dL Total Bilirubin (0.2-1.3) mg/dL AST (14-36) U/L ALT (4-34) U/L Alkaline Phosphatase (38-126) U/L Troponin I (0.000-0.034) ng/mL NT-Pro-B Natriuret Pep pg/mL Total Protein (6.3-8.2) g/dL Albumin (3.5-5.0) g/dL Triglycerides (<150) mg/dL Cholesterol (<200) mg/dL LDL Cholesterol, Calc (0-99) mg/dL HDL Cholesterol (40-60) mg/dL Urine Color Colorless Urine Appearance Clear (Clear) Urine pH 7.0 (5.0-8.0) Ur Specific [place] 1.005 (1.001-1.035) Urine Protein Negative (Negative) Urine Glucose (UA) 3+ H (Negative) Urine Ketones Negative (Negative) Urine Blood Negative (Negative) Urine Nitrite Negative (Negative) Urine Bilirubin Negative (Negative) Urine Urobilinogen <2.0 (<2.0) mg/dL Ur Leukocyte Esterase Negative (Negative) Acetone, Qual (Negative) 12/19/19 12/19/19 12/19/19 Range/Units 12:02 12:02 12:02 WBC (3.8-10.6) k/uL RBC (3.80-5.40) m/uL Hgb (11.4-16.0) gm/dL Hct (34.0-46.0) % MCV (80.0-100.0) fL MCH (25.0-35.0) pg MCHC (31.0-37.0) g/dL RDW (11.5-15.5) % Plt Count (150-450) k/uL Neutrophils % % Lymphocytes % % Monocytes % % Eosinophils % % Basophils % % Neutrophils # (1.3-7.7) k/uL Lymphocytes # (1.0-4.8) k/uL Monocytes # (0-1.0) k/uL Eosinophils # (0-0.7) k/uL Basophils # (0-0.2) k/uL PT (9.0-12.0) sec INR (<1.2) APTT (22.0-30.0) sec Sodium 132 L (137-145) mmol/L Potassium 4.8 (3.5-5.1) mmol/L Chloride 102 (98-107) mmol/L Carbon Dioxide 26 (22-30) mmol/L Anion Gap 4 mmol/L BUN 14 (7-17) mg/dL Creatinine 0.52 (0.52-1.04) mg/dL Est GFR (CKD-EPI)AfAm >90 (>60 ml/min/1.73 sqM) Est GFR (CKD-EPI)NonAf 88 (>60 ml/min/1.73 sqM) Glucose 260 H (74-99) mg/dL Plasma Lactic Acid Barry 1.5 (0.7-2.0) mmol/L Calcium 8.9 (8.4-10.2) mg/dL Magnesium 1.6 (1.6-2.3) mg/dL Total Bilirubin 0.9 (0.2-1.3) mg/dL AST 36 (14-36) U/L ALT 25 (4-34) U/L Alkaline Phosphatase 76 (38-126) U/L Troponin I <0.012 (0.000-0.034) ng/mL NT-Pro-B Natriuret Pep pg/mL Total Protein 6.7 (6.3-8.2) g/dL Albumin 4.2 (3.5-5.0) g/dL Triglycerides (<150) mg/dL Cholesterol (<200) mg/dL LDL Cholesterol, Calc (0-99) mg/dL HDL Cholesterol (40-60) mg/dL Urine Color Urine Appearance (Clear) Urine pH (5.0-8.0) Ur Specific [place] (1.001-1.035) Urine Protein (Negative) Urine Glucose (UA) (Negative) Urine Ketones (Negative) Urine Blood (Negative) Urine Nitrite (Negative) Urine Bilirubin (Negative) Urine Urobilinogen (<2.0) mg/dL Ur Leukocyte Esterase (Negative) Acetone, Qual Negative (Negative) 12/19/19 12/19/19 Range/Units 12:02 12:02 WBC (3.8-10.6) k/uL RBC (3.80-5.40) m/uL Hgb (11.4-16.0) gm/dL Hct (34.0-46.0) % MCV (80.0-100.0) fL MCH (25.0-35.0) pg MCHC (31.0-37.0) g/dL RDW (11.5-15.5) % Plt Count (150-450) k/uL Neutrophils % % Lymphocytes % % Monocytes % % Eosinophils % % Basophils % % Neutrophils # (1.3-7.7) k/uL Lymphocytes # (1.0-4.8) k/uL Monocytes # (0-1.0) k/uL Eosinophils # (0-0.7) k/uL Basophils # (0-0.2) k/uL PT (9.0-12.0) sec INR (<1.2) APTT (22.0-30.0) sec Sodium (137-145) mmol/L Potassium (3.5-5.1) mmol/L Chloride (98-107) mmol/L Carbon Dioxide (22-30) mmol/L Anion Gap mmol/L BUN (7-17) mg/dL Creatinine (0.52-1.04) mg/dL Est GFR (CKD-EPI)AfAm (>60 ml/min/1.73 sqM) Est GFR (CKD-EPI)NonAf (>60 ml/min/1.73 sqM) Glucose (74-99) mg/dL Plasma Lactic Acid Barry (0.7-2.0) mmol/L Calcium (8.4-10.2) mg/dL Magnesium (1.6-2.3) mg/dL Total Bilirubin (0.2-1.3) mg/dL AST (14-36) U/L ALT (4-34) U/L Alkaline Phosphatase (38-126) U/L Troponin I (0.000-0.034) ng/mL NT-Pro-B Natriuret Pep 117 pg/mL Total Protein (6.3-8.2) g/dL Albumin (3.5-5.0) g/dL Triglycerides 136 (<150) mg/dL Cholesterol 107 (<200) mg/dL LDL Cholesterol, Calc 38 (0-99) mg/dL HDL Cholesterol 42 (40-60) mg/dL Urine Color Urine Appearance (Clear) Urine pH (5.0-8.0) Ur Specific [place] (1.001-1.035) Urine Protein (Negative) Urine Glucose (UA) (Negative) Urine Ketones (Negative) Urine Blood (Negative) Urine Nitrite (Negative) Urine Bilirubin (Negative) Urine Urobilinogen (<2.0) mg/dL Ur Leukocyte Esterase (Negative) Acetone, Qual (Negative) - EKG Data EKG Comments: ventricular rate 72, VA interval 114, QRS 146, QT/QTc 462/505. Paced rhythm. No concern for acute ischemia at this time. (Andrea Carmona) Disposition Is patient prescribed a controlled substance at d/c from ED?: No <Andrea Carmona - Last Filed: 12/19/19 14:44> <Tobi Aguilar - Last Filed: 12/20/19 09:09> Clinical Impression: Weakness, CVA (cerebral vascular accident) Narrative: Possible subacute CVA (Andrea Carmona) Disposition: ADMITTED IP TO THIS HOSP Condition: Serious
[2019-12-19] MEDS ORDERED: ACETAMINOPHEN TAB 325 MG TAB PO PRN (14:29)
--- NOTE | 2019-12-19 14:29 | CT ---
EXAMINATION TYPE: CT angio head DATE OF EXAM: 12/19/2019 COMPARISON: Correlation CT brain same date HISTORY: 84-year-old female abnormal CT brain, possible ischemia TECHNIQUE: Contiguous axial scanning of the brain performed with IV Contrast, patient injected with 1 00 mL of Isovue 370. Coronal/sagittal MIP reconstructions performed. 3-D reconstructions generated on a dedicated independent workstation. CT DLP: 646.4 mGycm Automated exposure control for dose reduction was used. FINDINGS: Moderate to severe atherosclerotic calcifications at the V3/V4 junction of the right vertebral artery . The right V4 segment is hypoplastic. Moderate atherosclerotic narrowing proximal V4 segment left ve rtebral artery. Proximal to mid vertebral artery is small in caliber patent. Distal vertebral arteries very limited d ue to nondiagnostic due to the extensive patient motion. Atherosclerotic calcifications contributing to mild atherosclerotic narrowing throughout the carotid siphons. Gross patency of the anterior circulation. Unable to exclude a 4 x 3 mm aneurysm of the distal M1 segment right middle cerebral artery, axial im age 130 and coronal image 11. Assessment of the posterior cerebral arteries is very limited due to the motion. Dural venous sinuses are patent. IMPRESSION: 1. EXTENSIVE PATIENT MOTION ARTIFACT. VERY LIMITED EXAM. 2. Hypoplastic V4 segment right vertebral artery with moderate to severe atherosclerotic calcificatio ns at the V3/V4 junction. Additional moderate atherosclerotic narrowing proximal V4 segment left vert ebral artery. 3. Proximal to mid vertebral artery is uniformly small in caliber. Correlate for any chronic symptoms of vertebrobasilar insufficiency. Distal basilar artery is nondiagnostic due to motion. 4. Mild atherosclerotic narrowing throughout the carotid siphons. Gross patency to the anterior circu lation allowing for motion artifacts. 5. Unable to exclude a 4 x 3 mm M1/M2 junction right MCA aneurysm.
[2019-12-19] MEDS: SODIUM CHLORIDE 0.9% 1,000 ML IV SCH (19:02)
[2019-12-20] MEDS: SODIUM CHLORIDE 0.9% 1,000 ML IV SCH ×2 (01:42→09:25)
[2019-12-20 03:02] LABS: Cholesterol 107 mg/dL (<200); HDL Cholesterol 42 mg/dL (40-60); LDL Cholesterol,Calculated 38 mg/dL (0-99); Triglycerides 136 mg/dL (<150)
[2019-12-20 06:30] LABS: Glucose,Whole Blood 201 mg/dL (75-99)
[2019-12-20] MEDS ORDERED: NAPROXEN 250 MG TAB PO PRN (08:24)
--- NOTE | 2019-12-20 08:24 | P.HPIM ---
History of Present Illness H&P Date: 12/20/19 Chief Complaint: Generalized weakness immobility. This is a history and physical an 84-year-old white female known history of diabetes COPD and history of pacemaker who states she has general weakness. Computed tomography scan of the head did show significant subacute infarction and she is now admitted for appropriate neurologic evaluation. She states having difficulty ambulating. No significant chest pain or shortness of breath. No incontinence of bowel or bladder is stated. Review of Systems Constitutional: Denies chills, Denies fever Eyes: denies blurred vision, denies pain Cardiovascular: Denies chest pain, Denies shortness of breath Respiratory: Denies cough Gastrointestinal: Denies abdominal pain, Denies diarrhea, Denies nausea, Denies vomiting Neurological: Reports as per HPI Past Medical History Past Medical History: Cancer, COPD, Diabetes Mellitus, Hyperlipidemia Additional Past Medical History / Comment(s): HX OF BREAST CANCER, CHRONIC BACK PAIN, HX OF STOMACH ULCER., SEE Dr Rodriguez H&P History of Any Multi-Drug Resistant Organisms: None Reported Past Surgical History: AICD, Breast Surgery, Heart Catheterization, Pacemaker Additional Past Surgical History / Comment(s): BILATERAL CATARACT. RIGHT MASTECTOMY., MARV SHOULDER SURGERY. VENOGRAM Past Anesthesia/Blood Transfusion Reactions: No Reported Reaction Type of Cardiac Device: AICD Device Placement Date:: 01/2016 Past Psychological History: No Psychological Hx Reported Smoking Status: Never smoker Past Alcohol Use History: Occasional Additional Past Alcohol Use History / Comment(s): SMOKED: QUIT 1963, FOR A COUPLE OF YEAR, 1 PACK/WEEK. Past Drug Use History: None Reported - Past Family History Daughter(s) Family Medical History: Cancer Additional Family Medical History / Comment(s): BREAST CANCER Son(s) Family Medical History: Coronary Artery Disease (CAD) Additional Family Medical History / Comment(s): CARDIAC STENT. Sister(s) Family Medical History: Cancer Additional Family Medical History / Comment(s): BREAST CANCER. Medications and Allergies Home Medications Medication Instructions Recorded Confirmed Type Glimepiride 4 mg PO HS 08/12/15 12/19/19 History Multivitamins, Thera [Multivitamin 1 tab PO HS 08/12/15 12/19/19 History (formulary)] Ascorbic Acid [Vitamin C] 500 mg PO DAILY 12/19/19 12/19/19 History Atorvastatin [Lipitor] 20 mg PO Q48H 12/19/19 12/19/19 History Carvedilol 25 mg PO HS 12/19/19 12/19/19 History Cholecalciferol [Vitamin D3 (25 1,000 unit PO HS 12/19/19 12/19/19 History Mcg = 1000 Iu)] Cyanocobalamin (Vitamin B-12) 2,500 mcg PO HS 12/19/19 12/19/19 History [Vitamin B-12] Ferrous Sulfate [Iron (65 MG 325 mg PO HS 12/19/19 12/19/19 History Elemental)] Fish Oil/Dha/Epa [Fish Oil 1,200 1 tab PO HS 12/19/19 12/19/19 History mg Fish Oil] Memantine [Namenda] 10 mg PO HS 12/19/19 12/19/19 History Mv-Min/Folic/Vit K/Lut/Tnge039 1 tab PO HS 12/19/19 12/19/19 History [Alive Women's 50 Plus Tablet] Naproxen Sodium [Aleve] 220 mg PO HS PRN 12/19/19 12/19/19 History Potassium Gluconate 99 mg PO HS 12/19/19 12/19/19 History Spironolactone [Aldactone] 25 mg PO HS 12/19/19 12/19/19 History Ubidecarenone [Co Q-10] 200 mg PO HS 12/19/19 12/19/19 History Zinc Gluconate [Zinc] 50 mg PO HS 12/19/19 12/19/19 History metFORMIN HCL 500 mg PO HS 12/19/19 12/19/19 History Allergies Allergy/AdvReac Type Severity Reaction Status Date / Time codeine AdvReac Nausea & Verified 12/19/19 14:36 Vomiting Physical Exam Vitals: Vital Signs Temp Pulse Pulse Resp BP BP Pulse Ox 12/20/19 03:29 98.2 F 58 L 16 171/72 98 12/19/19 23:56 98 F 70 20 152/81 98 12/19/19 20:30 73 18 165/78 98 12/19/19 20:00 154/68 98 12/19/19 19:30 71 158/74 97 12/19/19 19:00 164/55 98 12/19/19 18:30 176/64 96 12/19/19 18:00 136/112 99 11/05/20 17:30 74 18 150/65 98 12/19/19 17:00 70 152/57 12/19/19 16:30 16 150/73 99 12/19/19 16:00 147/54 100 12/19/19 15:30 72 166/60 100 12/19/19 15:00 17 173/65 100 12/19/19 14:00 75 18 156/69 98 12/19/19 13:30 61 18 147/61 100 12/19/19 12:30 58 L 18 186/65 99 12/19/19 11:49 206/82 12/19/19 11:39 97.4 F L 74 18 99 Intake and Output 12/19/19 12/20/19 12/20/19 22:59 06:59 14:59 Output Total 500 Balance -500 Output: Urine 500 Other: Weight 53.07 kg 51.5 kg - Constitutional General appearance: no acute distress - EENT Eyes: EOMI - Neck Neck: no lymphadenopathy - Respiratory Respiratory: bilateral: CTA - Cardiovascular Rhythm: regular Heart sounds: normal: S1, S2 Abnormal Heart Sounds: no S3 Gallop - Integumentary Integumentary: no cellulitis - Neurologic Element of left-sided weakness in upper extremity. - Psychiatric Psychiatric: intact judgment & insight Results CBC & Chem 7: 12/19/19 12:02 12/19/19 12:02 Labs: Abnormal Lab Results - Last 24 Hours (Table) 12/19/19 12/19/19 12/20/19 Range/Units 12:02 12:02 06:21 Sodium 132 L (137-145) mmol/L Glucose 260 H (74-99) mg/dL POC Glucose (mg/dL) 201 H (75-99) mg/dL Urine Glucose (UA) 3+ H (Negative) Thrombosis Risk Factor Assmnt - Choose All That Apply Any of the Below Risk Factors Present?: Yes Each Risk Factor Represents 3 Points: Age 75 years or older Thrombosis Risk Factor Assessment Total Risk Factor Score: 3 Thrombosis Risk Factor Assessment Level: Moderate Risk
[2019-12-20] MEDS ORDERED: ATORVASTATIN 40 MG TAB PO SCH (09:00)
[2019-12-20] MEDS ORDERED: ATORVASTATIN 20 MG TAB PO SCH (09:00)
[2019-12-20] MEDS: ASPIRIN 325 MG TAB PO SCH (09:18)
[2019-12-20] MEDS: ASCORBIC ACID 500 MG TAB PO SCH (09:18)
[2019-12-20 11:54] LABS: Glucose,Whole Blood 236 mg/dL (75-99)
--- NOTE | 2019-12-20 12:11 | P.CNNES ---
History of Present Illness Consult date: 12/20/19 Requesting physician: Tobi Aguilar Reason for Consult: generalized weakness concern for storke History of Present Illness: This is an 84-year-old woman with medical history of diabetes, lipidemia, right breast cancer s/p massectomy (>13 years ago), cardiomyopathy status post AICD, coronary artery disease who presented to the emergency department on 12/19/2019 for generalized weakness one day. I spoke with patient's Octavia via phone and that the patient has been feeling generalized weak for the last 1 day at. She lives with her son. She did have a falling episode a couple days ago and that seemed was a mechanical fall according to the daughter that she tripped over a rug. Patient uses a cane for ambulation and the daughter does not know for how long but she said it's for some time this times that she doesn't use a cane. Of note it's per patient daughter the patient does have dementia for years and that she stated that sometimes she is just forgetful but could not expand. Patient is alert oriented to self, knows the name of her children. She is able to feed herself and use the bathroom on her own. Patient is hard of hearing. Of note she is on ASA 325mg 2 tab daily. She is on atorvastatin 20mg. She right breast cancer (>13 years ago) s/p massectomy s/p ?chemo and ?radiation. Workup in the hospital consisted of: Initial Vitals: Blood pressure of 206/82 with a heart rate of 74, respiratory of 18, temperature of 97.4 Fahrenheit oral and pulse ox of 99% room air. CT of the head was reported as low attenuation within the right temporal lobe and left cerebellum of indeterminant age may represent recent ischemia. Recommend correlation with MRI ankle correlation. No acute hemorrhage. Degenerative and nonspecific white matter changes most typical remote ischemia. I did personally review the CT of the head and I do agree with the findings above and the look subacute. CT angiography of the head and neck was reported as extensive patient motion artifact. Very limited study. 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 Additional moderate CAROTID knowing proximal V4 segment left verteb ral artery. Proximal to mild vertebral artery is uniformly small in caliber. Correlate for any chronic symptoms of vertebrobasilar insufficiency. Distal basilar artery is nondiagnostic due to motion. Mild atherosclerotic narrowing throughout the carotid siphons. Grossly patency to the anterior circulation allowing for motion artifact. Unable to exclude the a 4 x 3 mm M1 M2 junction right MCA aneurysm. EKG is reported as normal sinus rhythm. Ventricular rate of 72. Right bundle branch block. Possible lateral infarct, age undetermined. Inferior infarct, age undetermined. Abnormal EKG. Past Medical History Past Medical History: Cancer, COPD, Diabetes Mellitus, Hyperlipidemia Additional Past Medical History / Comment(s): HX OF BREAST CANCER, CHRONIC BACK PAIN, HX OF STOMACH ULCER., SEE Dr Rodriguez H&P History of Any Multi-Drug Resistant Organisms: None Reported Past Surgical History: AICD, Breast Surgery, Heart Catheterization, Pacemaker Additional Past Surgical History / Comment(s): BILATERAL CATARACT. RIGHT MASTECTOMY., MARV SHOULDER SURGERY. VENOGRAM Past Anesthesia/Blood Transfusion Reactions: No Reported Reaction Type of Cardiac Device: AICD Device Placement Date:: 01/2016 Past Psychological History: No Psychological Hx Reported Smoking Status: Never smoker Past Alcohol Use History: Occasional Additional Past Alcohol Use History / Comment(s): SMOKED: QUIT 1963, FOR A COUPLE OF YEAR, 1 PACK/WEEK. Past Drug Use History: None Reported - Past Family History Daughter(s) Family Medical History: Cancer Additional Family Medical History / Comment(s): BREAST CANCER Son(s) Family Medical History: Coronary Artery Disease (CAD) Additional Family Medical History / Comment(s): CARDIAC STENT. Sister(s) Family Medical History: Cancer Additional Family Medical History / Comment(s): BREAST CANCER. Medications and Allergies Home Medications Medication Instructions Recorded Confirmed Type Glimepiride 4 mg PO HS 08/12/15 12/19/19 History Multivitamins, Thera [Multivitamin 1 tab PO HS 08/12/15 12/19/19 History (formulary)] Ascorbic Acid [Vitamin C] 500 mg PO DAILY 12/19/19 12/19/19 History Atorvastatin [Lipitor] 20 mg PO Q48H 12/19/19 12/19/19 History Carvedilol 25 mg PO HS 12/19/19 12/19/19 History Cholecalciferol [Vitamin D3 (25 1,000 unit PO HS 12/19/19 12/19/19 History Mcg = 1000 Iu)] Cyanocobalamin (Vitamin B-12) 2,500 mcg PO HS 12/19/19 12/19/19 History [Vitamin B-12] Ferrous Sulfate [Iron (65 MG 325 mg PO HS 12/19/19 12/19/19 History Elemental)] Fish Oil/Dha/Epa [Fish Oil 1,200 1 tab PO HS 12/19/19 12/19/19 History mg Fish Oil] Memantine [Namenda] 10 mg PO HS 12/19/19 12/19/19 History Mv-Min/Folic/Vit K/[id number] 1 tab PO HS 12/19/19 12/19/19 History [Alive Women's 50 Plus Tablet] Naproxen Sodium [Aleve] 220 mg PO HS PRN 12/19/19 12/19/19 History Potassium Gluconate 99 mg PO HS 12/19/19 12/19/19 History Spironolactone [Aldactone] 25 mg PO HS 12/19/19 12/19/19 History Ubidecarenone [Co Q-10] 200 mg PO HS 12/19/19 12/19/19 History Zinc Gluconate [Zinc] 50 mg PO HS 12/19/19 12/19/19 History metFORMIN HCL 500 mg PO HS 12/19/19 12/19/19 History Allergies Allergy/AdvReac Type Severity Reaction Status Date / Time codeine AdvReac Nausea & Verified 12/19/19 14:36 Vomiting Physical Examination - Vital Signs Vital Signs: Vital Signs Temp Pulse Pulse Resp BP BP Pulse Ox 12/20/19 08:00 97.9 F 69 16 135/60 99 12/20/19 03:29 98.2 F 58 L 16 171/72 98 12/19/19 23:56 98 F 70 20 152/81 98 12/19/19 20:30 73 18 165/78 98 12/19/19 20:00 154/68 98 12/19/19 19:30 71 158/74 97 12/19/19 19:00 164/55 98 12/19/19 18:30 176/64 96 12/19/19 18:00 136/112 99 12/19/19 17:30 74 18 150/65 98 12/19/19 17:00 70 152/57 12/19/19 16:30 16 150/73 99 12/19/19 16:00 147/54 100 12/19/19 15:30 72 166/60 100 12/19/19 15:00 17 173/65 100 12/19/19 14:00 75 18 156/69 98 12/19/19 13:30 61 18 147/61 100 12/19/19 12:30 58 L 18 186/65 99 12/19/19 11:49 206/82 12/19/19 11:39 97.4 F L 74 18 99 Intake and Output 12/19/19 12/20/19 12/20/19 22:59 06:59 14:59 Intake Total 180 Output Total 500 Balance -500 180 Intake: Oral 180 Output: Urine 500 Other: Weight 53.07 kg 51.5 kg GENERAL: The patient is lying in bed and is not in acute distress. CHEST: The heart rate is regular rate rhythm. No murmurs to auscultation. No carotid bruit bilaterally. LUNG: Clear to auscultation bilaterally no wheezing noted throughout. Not labored breathing. ABDOMEN/GI: Bowel sounds present in all 4 quadrants. No tenderness to palpation throughout. NEUROLOGICAL: Higher mental function: The patient is drrowsy but is awakeable, oriented to self, place and time. Patient is following commands. No aphasia and no neglect. Cranial nerves: The pupils are round, equal and reactive to light and accommodation. Visual larsen are full to confrontation throughout. Extraocular movement is intact no nystagmus is noted. Facial sensation is normal to touch throughout. The facial strength is normal throughout. Hearing is normal bilaterally to hand rub. Tongue is midline and moved [id number] without any difficulty. No dysarthria is noted. Shoulder shrug is normal bilaterally. Motor: Gait is deferred since oncoaperative. The strength is 5 over 5 throughout. Normal tone and bulk. Cerebellum: Minimal dysmetria on finger to nose on left and at time was normal. Otherwise normal on the right. Sensation: Sensation is normal to touch throughout. Reflexes (right/left): 2+ throughout. Plantars are downgoing bilaterally. Results Calcium 8.9, magnesium 1.6. AST of 36, ALT 25. Lipid profile triglycerides 136, cholesterol 107, LDL 38 and HDL 42. Coagulation study: PT of 11.4, INR 1.1, PTT of 24.7. Urine analysis is negative for urinary tract infection - Laboratory Findings CBC and BMP: 12/19/19 12:02 12/19/19 12:02 Abnormal Lab Findings: Abnormal Labs 12/19/19 12/19/19 12/20/19 12:02 12:02 06:21 Sodium 132 L Glucose 260 H POC Glucose (mg/dL) 201 H Urine Glucose (UA) 3+ H Assessment and Plan Assessment: This is a 84 y/o woman with significant medical history who presented to the emergency department on 12/19/2019 for generalized weakness one day. Subacute stroke and right temporal as well as left cerebellar seems cardioembolic Unable to exclude the a 4 x 3 mm M1 M2 junction right MCA aneurysm per CTA head/neck Hx of dementia Uncontrolled Hypertension Hx of Cardiomyopathy status post AICD Coronary artery disease Diabetes type 2 Hyperlipidemia right breast cancer (>13 years ago) s/p massectomy s/p ?chemo and ?radiation Plan: * CT of the head was reported as low attenuation within the right temporal lobe and left cerebellum of indeterminant age may represent recent ischemia. I personally did review it and felt not acute but more subacute to less likely chronic. * Cannot get MRI because of the patient AICD * CT angiography of the head and neck was reported as extensive patient motion artifact. Very limited study. 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 Additional moderate CAROTID knowing proximal V4 segment left vertebral artery. Proximal to mild vertebral artery is uniformly small in caliber. Correlate for any chronic symptoms of vertebrobasilar insufficiency. Distal basilar artery is nondiagnostic due to motion. Mild atherosclerotic narrowing throughout the carotid siphons. Grossly patency to the anterior circulation allowing for motion artifact. Unable to exclude the a 4 x 3 mm M1 M2 junction right MCA aneurysm. * The CT angiogram to be repeated later today. * Currently the patient is on aspirin 325 daily (home dose ASA 325mg 2 tab bid) and Lipitor 20 mg daily. I will continue the aspirin 325 daily in addition I would like to add Plavix 75 mg. Changed lipitor to 40 mg daily. * Lipid profile triglycerides 136, cholesterol 107, LDL 38 and HDL 42. * Pending 2-D echo. * Ordered TSH and hemoglobin A1c. * Consulted cardiology for consideration RICO. * Physical therapy and occupation therapy as well as a AGILE BUSINESS ANALYST are consulted. * She is also on home dose of Memantine 10 mg. * Also on home dose 2500 g daily and it was restarted by primary care. I feel the dose is too high and rather recommend 1000mcg daily. * The plan was discussed with the patient daughter via phone. Thank you for the consultation. Dr. Steen will be on service for Neurology on 12/20 and 12/22/2019. Devon Mcconnell M.D. Neuro-hospitalist Time with Patient: Greater than 30
--- NOTE | 2019-12-20 13:02 | P.CRDCN ---
History of Present Illness Consult date: 12/20/19 History of present illness: CHIEF COMPLAINT: RICO HISTORY OF PRESENT ILLNESS: This is a 84-year old female with a past medical history significant for coronary artery disease, cardiomyopathy, previous ICD placement, COPD, diabetes mellitus, and hyperlipidemia. Patient follows in the office with Dr. Cash. We have been asked to see the patient in consultation for RICO. Patient examined at the bedside. She reports she came to the hospital because she was feeling generalized weakness for the past 2-3 weeks. She denies any difficulties with her speech. She currently denies chest pain or pressure. Denies shortness of breath. Patient underwent cardiac cath in August 2015 revealing [id number] triple-vessel coronary artery disease. Medical management was recommended. DIAGNOSTICS: EKG reveals paced rhythm with right bundle branch block Chest xray borderline heart size. No acute process noted. Laboratory data: WBC 6.2. Hemoglobin 13.1. Platelet count 259. Sodium 132. Potassium 4.8. BUN 14. Creatinine 0.52. Troponin negative 1. Current home cardiac medications include Aldactone 25 mg daily, Lipitor 20 mg every 48 hours, and carvedilol [address] of the brain: Low attenuation within the right upper lobe and left cerebellum indeterminate age may represent recent ischemia. No acute hemorrhage. REVIEW OF SYSTEMS: At the time of my exam: CONSTITUTIONAL: Denies fever or chills. HEENT: Denies blurred vision, vision changes, or eye pain. Denies hemoptysis CARDIOVASCULAR: Denies chest pain, orthopnea, PND or palpitations RESPIRATORY: No shortness of breath. GASTROINTESTINAL: Denies abdominal pain. Denies nausea or vomiting. HEMATOLOGIC: Denies bleeding disorders. GENITOURINARY: Denies any blood in urine. SKIN: Denies pruitis. Denies rash. PHYSICAL EXAM: VITAL SIGNS: Reviewed. GENERAL: Well-developed in no acute distress. HEENT: Head is normocephalic. Pupils are equal, round. Sclerae anicteric. Mucous membranes of the mouth are moist. Neck supple. No JVD or thyromegaly LUNGS: Respirations even and unlabored. Lungs essentially clear to auscultation bilaterally. HEART: Regular rate and rhythm. S1 and S2 heard. ABDOMEN: Soft. Nondistended. Nontender. EXTREMITIES: Normal range of motion. No clubbing or cyanosis. Peripheral pulses intact. No lower extremity edema NEUROLOGIC: Awake and alert. Oriented x 3. ASSESSMENT: CVA, likely subacute per neurology Hyperlipidemia History of nonischemic cardiomyopathy, status post AICD, 2016 Nonobstructive coronary artery disease Diabetes mellitus, type II Hypertension PLAN: Neurology following Continue telemetry monitoring Obtain 2D echo to assess cardiac structure and function Patient will be scheduled for RICO on Monday with Dr. Cash Nurse practitioner note has been reviewed by physician. Signing provider agrees with the documented findings, assessment, and plan of care. Past Medical History Past Medical History: Cancer, COPD, Diabetes Mellitus, Hyperlipidemia Additional Past Medical History / Comment(s): HX OF BREAST CANCER, CHRONIC BACK PAIN, HX OF STOMACH ULCER., SEE Dr Rodriguez H&P History of Any Multi-Drug Resistant Organisms: None Reported Past Surgical History: AICD, Breast Surgery, Heart Catheterization, Pacemaker Additional Past Surgical History / Comment(s): BILATERAL CATARACT. RIGHT MASTECTOMY., MARV SHOULDER SURGERY. VENOGRAM Past Anesthesia/Blood Transfusion Reactions: No Reported Reaction Type of Cardiac Device: AICD Device Placement Date:: 01/2016 Past Psychological History: No Psychological Hx Reported Smoking Status: Never smoker Past Alcohol Use History: Occasional Additional Past Alcohol Use History / Comment(s): SMOKED: QUIT 1963, FOR A COU PLE OF YEAR, 1 PACK/WEEK. Past Drug Use History: None Reported - Past Family History Daughter(s) Family Medical History: Cancer Additional Family Medical History / Comment(s): BREAST CANCER Son(s) Family Medical History: Coronary Artery Disease (CAD) Additional Family Medical History / Comment(s): CARDIAC STENT. Sister(s) Family Medical History: Cancer Additional Family Medical History / Comment(s): BREAST CANCER. Medications and Allergies Home Medications Medication Instructions Recorded Confirmed Type Glimepiride 4 mg PO HS 08/12/15 12/19/19 History Multivitamins, Thera [Multivitamin 1 tab PO HS 08/12/15 12/19/19 History (formulary)] Ascorbic Acid [Vitamin C] 500 mg PO DAILY 12/19/19 12/19/19 History Atorvastatin [Lipitor] 20 mg PO Q48H 12/19/19 12/19/19 History Carvedilol 25 mg PO HS 12/19/19 12/19/19 History Cholecalciferol [Vitamin D3 (25 1,000 unit PO HS 12/19/19 12/19/19 History Mcg = 1000 Iu)] Cyanocobalamin (Vitamin B-12) 2,500 mcg PO HS 12/19/19 12/19/19 History [Vitamin B-12] Ferrous Sulfate [Iron (65 MG 325 mg PO HS 12/19/19 12/19/19 History Elemental)] Fish Oil/Dha/Epa [Fish Oil 1,200 1 tab PO HS 12/19/19 12/19/19 History mg Fish Oil] Memantine [Namenda] 10 mg PO HS 12/19/19 12/19/19 History Mv-Min/Folic/Vit [id number] 1 tab PO HS 12/19/19 12/19/19 History [Alive Women's 50 Plus Tablet] Naproxen Sodium [Aleve] 220 mg PO HS PRN 12/19/19 12/19/19 History Potassium Gluconate 99 mg PO HS 12/19/19 12/19/19 History Spironolactone [Aldactone] 25 mg PO HS 12/19/19 12/19/19 History Ubidecarenone [Co Q-10] 200 mg PO HS 12/19/19 12/19/19 History Zinc Gluconate [Zinc] 50 mg PO HS 12/19/19 12/19/19 History metFORMIN HCL 500 mg PO HS 12/19/19 12/19/19 History Allergies Allergy/AdvReac Type Severity Reaction Status Date / Time codeine AdvReac Nausea & Verified 12/19/19 14:36 Vomiting Physical Exam Vitals: Vital Signs Temp Pulse Pulse Resp BP BP Pulse Ox 12/20/19 11:23 62 18 12/20/19 11:21 97.8 F 62 18 157/81 98 12/20/19 08:00 97.9 F 69 16 135/60 99 12/20/19 03:29 98.2 F 58 L 16 171/72 98 12/19/19 23:56 98 F 70 20 152/81 98 12/19/19 20:30 73 18 165/78 98 12/19/19 20:00 154/68 98 12/19/19 19:30 71 158/74 97 12/19/19 19:00 164/55 98 12/19/19 18:30 176/64 96 12/19/19 18:00 136/112 99 12/19/19 17:30 74 18 150/65 98 12/19/19 17:00 70 152/57 12/19/19 16:30 16 150/73 99 12/19/19 16:00 147/54 100 12/19/19 15:30 72 166/60 100 12/19/19 15:00 17 173/65 100 12/19/19 14:00 75 18 156/69 98 12/19/19 13:30 61 18 147/61 100 Intake and Output 12/19/19 12/20/19 12/20/19 22:59 06:59 14:59 Intake Total 180 Output Total 500 Balance -500 180 Intake: Oral 180 Output: Urine 500 Other: Weight 53.07 kg 51.5 kg Results 12/19/19 12:02 12/19/19 12:02 Cardiac Enzymes 12/19/19 Range/Units 12:02 Troponin I <0.012 (0.000-0.034) ng/mL Coagulation 12/19/19 Range/Units 12:02 PT 11.4 (9.0-12.0) sec APTT 24.7 (22.0-30.0) sec Lipids 12/19/19 Range/Units 12:02 Triglycerides 136 (<150) mg/dL Cholesterol 107 (<200) mg/dL HDL Cholesterol 42 (40-60) mg/dL Current Medications Generic Name Dose Route Start Last Admin Trade Name Freq PRN Reason Stop Dose Admin Acetaminophen 650 mg 12/19/19 14:29 Acetaminophen Tab 325 Mg Tab PO Q6HR PRN Pain Ascorbic Acid 500 mg 12/20/19 09:00 12/20/19 09:18 Ascorbic Acid 500 Mg Tab PO 500 mg DAILY RJ Administration Aspirin 325 mg 12/20/19 09:00 12/20/19 09:18 Aspirin 325 Mg Tab PO 325 mg DAILY RJ Administration Atorvastatin Calcium 40 mg 12/20/19 21:00 Atorvastatin 40 Mg Tab PO HS RJ Carvedilol 25 mg 12/20/19 21:00 Carvedilol 12.5 Mg Tab PO HS RJ Cholecalciferol 1,000 unit 12/20/19 21:00 Cholecalciferol 1,000 Unit Tab PO HS RJ Cyanocobalamin 2,500 mcg 12/20/19 21:00 Cyanocobalamin 500 Mcg Tab PO HS RJ Ferrous Sulfate 325 mg 12/20/19 21:00 Ferrous Sulfate 325 Mg Tab PO HS RJ Glimepiride 4 mg 12/20/19 21:00 Glimepiride 4 Mg Tab PO HS RJ Sodium Chloride 1,000 mls @ 100 mls/hr 12/19/19 14:30 12/20/19 09:25 Saline 0.9% IV 100 mls/hr .Q10H RJ Administration Memantine 10 mg 12/20/19 21:00 Memantine 10 Mg Tab PO HS RJ Metformin HCl 500 mg 12/20/19 21:00 Metformin 500 Mg Tab PO HS RJ Multivitamins 1 each 12/20/19 21:00 Multivitamins, Thera 1 Each Tab PO HS RJ Naproxen 250 mg 12/20/19 08:24 Naproxen 250 Mg Tab PO HS PRN Pain Spironolactone 25 mg 12/20/19 21:00 Spironolactone 25 Mg Tab PO HS RJ Zinc Sulfate 220 mg 12/20/19 21:00 Zinc Sulfate 220 Mg Cap PO HS RJ Intake and Output 12/19/19 12/20/19 12/20/19 22:59 06:59 14:59 Intake Total 180 Output Total 500 Balance -500 180 Intake: Oral 180 Output: Urine 500 Other: Weight 53.07 kg 51.5 kg 12/19/19 12:02 12/19/19 12:02
--- NOTE | 2019-12-20 16:52 | CT ---
EXAMINATION TYPE: CT angio head neck DATE OF EXAM: 12/20/2019 COMPARISON: CT angiogram of the brain yesterday HISTORY: CVA CT DLP: 432.2 mGycm Automated exposure control for dose reduction was used. CONTRAST: Performed with IV Contrast, patient injected with 65 mL of Isovue 370. There are 3-D post processed images. Images obtained from the aortic arch to the vertex of the brain with IV contrast. FINDINGS: There is normal branching pattern of the great vessels on the aortic arch. There is bilateral arteria l flow in the subclavian arteries. There is arterial flow in both vertebral arteries. There is severe narrowing of the distal right vertebral artery with more than 75% stenosis. There is also some lumen narrowing of the distal left vertebral artery with 50% narrowing. There is diminutive basilar artery . There is arterial flow in the left posterior communicating artery. There is arterial flow in the common internal and external carotid arteries bilaterally. There is ivette que formation at the carotid artery bifurcations and estimated 50% stenosis at the origin of the righ t internal carotid artery. There is estimated 20% stenosis origin left internal carotid artery. There is no evidence of carotid or vertebral artery aneurysm or dissection. There is arterial flow in both anterior middle and posterior cerebral arteries. There is hypodensity in the left cerebellar hemisphere. There is some bulbous appearance of the bifurcation of the right m iddle cerebral artery and their is probably a 3 mm aneurysm. There is normal contrast opacification o f the venous sinuses. 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 Diminutive basilar artery. 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 Ischemic changes in the left cerebellar hemisphere. Stenosis of the internal carotid arteries bilaterally and more on the right side at the bifurcations. There is evidence for stenosis of the right middle cerebral artery proximal to the aneurysm of 50% l uminal narrowing.
[2019-12-20 16:57] LABS: Glucose,Whole Blood 259 mg/dL (75-99)
--- NOTE | 2019-12-20 18:20 | ECHOF ---
Referral Reason:Thrombus MEASUREMENTS -------- HEIGHT: 152.4 cm WEIGHT: 81.6 kg BP: RVIDd: 2.3 cm (< 3.3) IVSd: 1.4 cm (0.6 - 1.1) LVIDd: 3.3 cm (3.9 - 5.3) LVPWd: 1.4 cm (0.6 - 1.1) IVSs: 1.5 cm LVIDs: 2.9 cm LVPWs: 1.3 cm LA Diam: 4.2 cm (2.7 - 3.8) MV EXCURSION: 17.918 mm (> 18.000) MV EF SLOPE: 65 mm/s (70 - 150) EPSS: 1.2 cm MV E Brendan: 0.52 m/s MV DecT: 274 ms MV A Brendan: 0.69 m/s MV E/A Ratio: 0.76 RAP: 5.00 mmHg RVSP: 25.88 mmHg FINDINGS -------- Paced rhythm. Pacerwire seen in RV and RA. This was a technically adequate study. The left ventricular size is normal. There is moderate concentric left ventricular hypertrophy. O verall left ventricular systolic function is low-normal with, an EF between 50 - 55 %. The right ventricle is normal in size. The left atrium is mildly dilated. The right atrial size is normal. There is mild aortic valve sclerosis. There is no evidence of aortic regurgitation. Mild mitral annular calcification present. Mild mitral regurgitation is present. Mild tricuspid regurgitation present. Right ventricular systolic pressure is normal at < 35 mmHg. The pulmonic valve was not well visualized. The aortic root size is normal. There is no pericardial effusion. CONCLUSIONS -------- 1. Pacerwire seen in RV and RA. 2. The left ventricular size is normal. 3. There is moderate concentric left ventricular hypertrophy. 4. Overall left ventricular systolic function is low-normal with, an EF between 50 - 55 %. 5. The right ventricle is normal in size. 6. The left atrium is mildly dilated. 7. The right atrial size is normal. 8. There is mild aortic valve sclerosis. 9. Mild mitral annular calcification present. 10. Mild mitral regurgitation is present. 11. Mild tricuspid regurgitation present. 12. The pulmonic valve was not well visualized. 13. The aortic root size is normal. 14. There is no pericardial effusion. ASSISTANT COUNSEL: Monica Johnson RDCS
[2019-12-20 20:00] LABS: Glucose,Whole Blood 327 mg/dL (75-99)
[2019-12-20] MEDS ORDERED: NON FORMULARY DRUG (Potassium Gluconate [Potassium Gluconate] 99 MG Tablet.Er) PO SCH (21:00)
[2019-12-20] MEDS ORDERED: [UNRECOGNIZED DRUG - MIXTURE] PO SCH (21:00)
[2019-12-20] MEDS ORDERED: NON FORMULARY DRUG (Ubidecarenone [Co Q-10] 100 MG Capsule) PO SCH (21:00)
[2019-12-20] MEDS ORDERED: NON FORMULARY DRUG (Fish Oil/Dha/Epa [Fish Oil 1,200 Mg Fish Oil] 1 EACH Capsule) PO SCH (21:00)
[2019-12-20] MEDS: INSULIN ASPART (NovoLOG) 100 UNIT/ML VIAL SQ SCH (21:12)
[2019-12-20] MEDS: CYANOCOBALAMIN 500 MCG TAB PO SCH (21:13)
[2019-12-20] MEDS: ATORVASTATIN 40 MG TAB PO SCH (21:16)
[2019-12-20] MEDS: carvediloL 12.5 MG TAB PO SCH (21:17)
[2019-12-20] MEDS: metFORMIN 500 MG TAB PO SCH (21:18)
[2019-12-20] MEDS: MULTIVITAMINS, THERA 1 EACH TAB PO SCH (21:18)
[2019-12-20] MEDS: FERROUS SULFATE 325 MG TAB PO SCH (21:18)
[2019-12-20] MEDS: SPIRONOLACTONE 25 MG TAB PO SCH (21:18)
[2019-12-20] MEDS: MEMANTINE 10 MG TAB PO SCH (21:18)
[2019-12-20] MEDS: ZINC SULFATE 220 MG CAP PO SCH (21:20)
[2019-12-20] MEDS: CHOLECALCIFEROL 1,000 UNIT TAB PO SCH (22:03)
[2019-12-20] MEDS: GLIMEPIRIDE 4 MG TAB PO SCH (22:03)
[2019-12-21 06:20] LABS: Glucose,Whole Blood 198 mg/dL (75-99)
[2019-12-21] MEDS: INSULIN ASPART (NovoLOG) 100 UNIT/ML VIAL SQ SCH ×4 (06:20→20:29)
[2019-12-21] MEDS: SODIUM CHLORIDE 0.9% 1,000 ML IV SCH ×3 (06:20→17:17)
[2019-12-21 07:55] LABS: HCT 37.3 % (34.0-46.0); HGB 12.5 gm/dL (11.4-16.0); MCH 33.6 pg (25.0-35.0); MCHC 33.5 g/dL (31.0-37.0); MCV 100.4 fL (80.0-100.0); Mean Platelet Volume 8.5; Platelet Count 204 k/uL (150-450); RBC 3.71 m/uL (3.80-5.40); RDW 13.4 % (11.5-15.5); WBC 10.3 k/uL (3.8-10.6)
[2019-12-21 08:20] LABS: ALT 23 U/L (4-34); AST 29 U/L (14-36); African American GFR (CKD) >90 (>60 ml/min/1.73 sqM); Albumin 3.9 g/dL (3.5-5.0); Alkaline Phosphatase 84 U/L (38-126); Anion Gap 8 mmol/L; Blood Urea Nitrogen 13 mg/dL (7-17); Calcium 8.9 mg/dL (8.4-10.2); Carbon Dioxide 23 mmol/L (22-30); Chloride 103 mmol/L (98-107); Glucose 183 mg/dL (74-99); Non-African American GFR(CKD) 88 (>60 ml/min/1.73 sqM); Potassium 3.9 mmol/L (3.5-5.1); Sodium 134 mmol/L (137-145); Total Bilirubin 0.6 mg/dL (0.2-1.3); Total Protein 6.3 g/dL (6.3-8.2)
[2019-12-21] MEDS: ASPIRIN 325 MG TAB PO SCH (09:19)
[2019-12-21] MEDS: ASCORBIC ACID 500 MG TAB PO SCH (09:19)
[2019-12-21 11:53] LABS: Glucose,Whole Blood 344 mg/dL (75-99)
--- NOTE | 2019-12-21 15:04 | P.PN ---
Subjective Progress Note Date: 12/21/19 CHIEF COMPLAINT: RICO HISTORY OF PRESENT ILLNESS: This is a 84-year old female with a past medical history significant for coronary artery disease, cardiomyopathy, previous ICD placement, COPD, diabetes mellitus, and hyperlipidemia. Patient follows in the office with Dr. Cash. We have been asked to see the patient in consultation for RICO. Patient examined at the bedside. She reports she came to the hospital because she was feeling generalized weakness for the past 2-3 weeks. She denies any difficulties with her speech. She currently denies chest pain or pressure. Denies shortness of breath. Patient underwent cardiac cath in August 2015 revealing [id number] triple-vessel coronary artery disease. Medical management was recommended. EKG reveals paced rhythm with right bundle branch block. Chest xray borderline heart size. No acute process noted. Laboratory data: WBC 6.2. Hemoglobin 13.1. Platelet count 259. Sodium 132. Potassium 4.8. BUN 14. Creatinine 0.52. Troponin negative 1. Current home cardiac medications include Aldactone 25 mg daily, Lipitor 20 mg every 48 hours, and carvedilol [address] of the brain: Low attenuation within the right upper lobe and left cerebellum indeterminate age may represent recent ischemia. No acute hemorrhage. 12/20: The patient denies any new complaints. Blood pressure is on the high side and losartan will be added. 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 Ec hocardiogram reveals EF of 50-55% with moderate concentric left hypertrophy, mild aortic valve sclerosis, mild mitral regurgitation, mild tricuspid regurgitation. Patient is scheduled for RICO Monday. PHYSICAL EXAM: VITAL SIGNS: Blood pressure 197/87, heart rate 73, afebrile, pulse ox 97% on room air. GENERAL: Well-developed in no acute distress. HEENT: Head is normocephalic. Pupils are equal, round. Sclerae anicteric. Mucous membranes of the mouth are moist. Neck supple. No JVD or thyromegaly LUNGS: Respirations even and unlabored. Lungs essentially clear to auscultation bilaterally. HEART: Regular rate and rhythm. S1 and S2 heard. ABDOMEN: Soft. Nondistended. Nontender. EXTREMITIES: Normal range of motion. No clubbing or cyanosis. Peripheral pulses intact. No lower extremity edema NEUROLOGIC: Awake and alert. Oriented x 3. ASSESSMENT: CVA, likely subacute per neurology Hyperlipidemia History of nonischemic cardiomyopathy, status post AICD, 2016 Nonobstructive coronary artery disease Diabetes mellitus, type II Hypertension PLAN: Neurology following Continue telemetry monitoring Patient is scheduled for RICO on Monday with Dr. Cash Nurse practitioner note has been reviewed by physician. Signing provider agrees with the documented findings, assessment, and plan of care. Objective - Vital Signs Vital signs: Vital Signs Temp 98.0 F 12/21/19 08:00 Pulse 72 12/21/19 08:00 Resp 16 12/21/19 03:10 BP 143/72 12/21/19 03:10 Pulse Ox 94 L 12/21/19 03:10 Intake & Output 12/20/19 12/21/19 12/21/19 18:59 06:59 18:59 Intake Total 780 360 Balance 780 360 Weight 51.9 kg Intake: Oral 780 360 Other: # Voids 2 3 1 # Bowel Movements 2 1 - Labs CBC & Chem 7: 12/21/19 06:51 12/21/19 06:51 Labs: Abnormal Lab Results - Last 24 Hours (Table) 12/20/19 12/20/19 12/20/19 Range/Units 11:53 16:56 19:58 RBC (3.80-5.40) m/uL MCV (80.0-100.0) fL Sodium (137-145) mmol/L Glucose (74-99) mg/dL POC Glucose (mg/dL) 236 H 259 H 327 H (75-99) mg/dL 12/21/19 12/21/19 12/21/19 Range/Units 06:18 06:51 06:51 RBC 3.71 L (3.80-5.40) m/uL MCV 100.4 H (80.0-100.0) fL Sodium 134 L (137-145) mmol/L Glucose 183 H (74-99) mg/dL POC Glucose (mg/dL) 198 H (75-99) mg/dL
[2019-12-21 16:07] LABS: Hemoglobin A1C 8.8 % (4.0-6.0)
[2019-12-21 16:57] LABS: Glucose,Whole Blood 295 mg/dL (75-99)
[2019-12-21] MEDS: LOSARTAN 25 MG TAB PO SCH (17:16)
[2019-12-21 20:09] LABS: Glucose,Whole Blood 204 mg/dL (75-99)
[2019-12-21] MEDS: ATORVASTATIN 40 MG TAB PO SCH (20:29)
[2019-12-21] MEDS: MULTIVITAMINS, THERA 1 EACH TAB PO SCH (20:29)
[2019-12-21] MEDS: CHOLECALCIFEROL 1,000 UNIT TAB PO SCH (20:29)
[2019-12-21] MEDS: MEMANTINE 10 MG TAB PO SCH (20:30)
[2019-12-21] MEDS: metFORMIN 500 MG TAB PO SCH (20:30)
[2019-12-21] MEDS: carvediloL 12.5 MG TAB PO SCH (20:30)
[2019-12-21] MEDS: ZINC SULFATE 220 MG CAP PO SCH (20:30)
[2019-12-21] MEDS: FERROUS SULFATE 325 MG TAB PO SCH (20:30)
[2019-12-21] MEDS: SPIRONOLACTONE 25 MG TAB PO SCH (20:30)
[2019-12-21] MEDS: CYANOCOBALAMIN 500 MCG TAB PO SCH (20:30)
[2019-12-21] MEDS: GLIMEPIRIDE 4 MG TAB PO SCH (20:30)
[2019-12-22] MEDS: SODIUM CHLORIDE 0.9% 1,000 ML IV SCH ×3 (05:10→20:45)
[2019-12-22 06:09] LABS: Glucose,Whole Blood 144 mg/dL (75-99)
[2019-12-22] MEDS: INSULIN ASPART (NovoLOG) 100 UNIT/ML VIAL SQ SCH ×4 (06:19→20:44)
[2019-12-22] MEDS: ASPIRIN 325 MG TAB PO SCH (09:07)
[2019-12-22] MEDS: ASCORBIC ACID 500 MG TAB PO SCH (09:07)
[2019-12-22] MEDS: LOSARTAN 25 MG TAB PO SCH (09:07)
[2019-12-22] MEDS ORDERED: LOSARTAN 25 MG TAB PO STA (12:18)
[2019-12-22 12:19] LABS: Glucose,Whole Blood 208 mg/dL (75-99)
--- NOTE | 2019-12-22 12:19 | P.PN ---
Subjective Progress Note Date: 12/22/19 CHIEF COMPLAINT: RICO HISTORY OF PRESENT ILLNESS: This is a 84-year old female with a past medical history significant for coronary artery disease, cardiomyopathy, previous ICD placement, COPD, diabetes mellitus, and hyperlipidemia. Patient follows in the office with Dr. Cash. We have been asked to see the patient in consultation for RICO. Patient examined at the bedside. She reports she came to the hospital because she was feeling generalized weakness for the past 2-3 weeks. She denies any difficulties with her speech. She currently denies chest pain or pressure. Denies shortness of breath. Patient underwent cardiac cath in August 2015 revealing [id number] triple-vessel coronary artery disease. Medical management was recommended. EKG reveals paced rhythm with right bundle branch block. Chest xray borderline heart size. No acute process noted. Laboratory data: WBC 6.2. Hemoglobin 13.1. Platelet count 259. Sodium 132. Potassium 4.8. BUN 14. Creatinine 0.52. Troponin negative 1. Current home cardiac medications include Aldactone 25 mg daily, Lipitor 20 mg every 48 hours, and carvedilol [address] of the brain: Low attenuation within the right upper lobe and left cerebellum indeterminate age may represent recent ischemia. No acute hemorrhage. 12/20: The patient denies any new complaints. Blood pressure is on the high side and losartan will be added. pvc monitor is ventricular paced rhythm. Ec hocardiogram reveals EF of 50-55% with moderate concentric left hypertrophy, mild aortic valve sclerosis, mild mitral regurgitation, mild tricuspid regurgitation. Patient is scheduled for RICO Monday. 12/21: Patient states he is doing okay. She denies having any chest pain or shortness of breath. She continues to have weakness from stroke. No repeat lab work today. Vital signs reviewed. Losartan was started yesterday as blood pressure was running high. This will be increased to 50 mg daily PHYSICAL EXAM: VITAL SIGNS: Blood pressure 161/72, heart rate 64, afebrile, pulse ox 98% on room air. GENERAL: Well-developed in no acute distress. HEENT: Head is normocephalic. Pupils are equal, round. Sclerae anicteric. Mucous membranes of the mouth are moist. Neck supple. No JVD or thyromegaly LUNGS: Respirations even and unlabored. Lungs essentially clear to auscultation bilaterally. HEART: Regular rate and rhythm. S1 and S2 heard. ABDOMEN: Soft. Nondistended. Nontender. EXTREMITIES: Normal range of motion. No clubbing or cyanosis. Peripheral pulses intact. No lower extremity edema NEUROLOGIC: Awake and alert. Oriented x 3. ASSESSMENT: CVA, likely subacute per neurology Hyperlipidemia History of nonischemic cardiomyopathy, status post AICD, 2016 Nonobstructive coronary artery disease Diabetes mellitus, type II Hypertension PLAN: Neurology following Continue telemetry monitoring Patient started on losartan 50 mg daily Patient is scheduled for RICO on Monday with Dr. Cash Nurse practitioner note has been reviewed by physician. Signing provider agrees with the documented findings, assessment, and plan of care. Objective - Vital Signs Vital signs: Vital Signs Temp 98.0 F 12/22/19 08:00 Pulse 64 12/22/19 08:00 Resp 16 12/22/19 08:00 BP 161/72 12/22/19 08:00 Pulse Ox 98 12/22/19 08:00 Intake & Output 12/21/19 12/22/19 12/22/19 18:59 06:59 18:59 Intake Total 837 100 Balance 837 100 Weight 52.3 kg Intake: Intake, IV Titration 100 Amount Sodium Chloride 0.9% 1, 100 000 ml @ 100 mls/hr IV . Q10H [facility] Rx#:[id number] Oral 837 Other: # Voids 1 2 # Bowel Movements 1 - Labs CBC & Chem 7: 12/21/19 06:51 12/21/19 06:51 Labs: Abnormal Lab Results - Last 24 Hours (Table) 12/21/19 12/21/19 12/21/19 Range/Units 06:51 11:51 16:56 POC Glucose (mg/dL) 344 H 295 H (75-99) mg/dL Hemoglobin A1c 8.8 H (4.0-6.0) % 12/21/19 12/22/19 Range/Units 20:07 06:07 POC Glucose (mg/dL) 204 H 144 H (75-99) mg/dL Hemoglobin A1c (4.0-6.0) %
--- NOTE | 2019-12-22 14:45 | P.PN ---
Subjective Progress Note Date: 12/22/19 The patient is seen in neurologic follow-up on December 22, 2019 via teleneurology. Per RN, the patient has had no neurological changes. The patient herself denies difficulty with speech and headache. She reports weakness of her upper extremities. She also reports that she falls easily because her legs are weak. The chart has been reviewed. Patient is waiting for transesophageal echocardiogram to be performed on Monday. Objective - Vital Signs Vital signs: Vital Signs Temp 98.0 F 12/22/19 08:00 Pulse 69 12/22/19 12:00 Resp 16 12/22/19 12:00 BP 184/68 12/22/19 12:00 Pulse Ox 99 12/22/19 12:00 Intake & Output 12/21/19 12/22/19 12/22/19 18:59 06:59 18:59 Intake Total 837 100 Balance 837 100 Weight 52.3 kg Intake: Intake, IV Titration 100 Amount Sodium Chloride 0.9% 1, 100 000 ml @ 100 mls/hr IV . Q10H [facility] Rx#:[id number] Oral 837 Other: # Voids 1 2 # Bowel Movements 1 - Exam Gen.: The patient is a frail elderly female who is reclining in the bed. She is in no acute distress. HEENT: Head is atraumatic, normocephalic. Fundus not visualized. There is no scleral icterus. Mucous membranes are moist. Heart: Regular rate and rhythm Neurological examination Mental status: Patient is awake and alert. She is oriented to her name, date of , current year and location. Her speech is fluent. Cranial nerves: 2-12 grossly intact Motor: Right upper extremity strength 4-5/5. Left upper extremity strength 5/5. Coordination: Finger to nose testing is intact. There is no dysdiadochokinesia. The patient was observed in reaching for her cup of coffee with her right hand and bringing it in a controlled fashion, to her mouth. Deep tendon reflexes: 1+/4+ in the right upper and lower extremities. Left- sided reflexes are absent. - Labs CBC & Chem 7: 12/21/19 06:51 12/21/19 06:51 Labs: Abnormal Lab Results - Last 24 Hours (Table) 12/21/19 12/21/19 12/21/19 Range/Units 06:51 16:56 20:07 POC Glucose (mg/dL) 295 H 204 H (75-99) mg/dL Hemoglobin A1c 8.8 H (4.0-6.0) % 12/22/19 12/22/19 Range/Units 06:07 12:18 POC Glucose (mg/dL) 144 H 208 H (75-99) mg/dL Hemoglobin A1c (4.0-6.0) % Assessment and Plan Assessment: 1. Likely cardioembolic subacute strokes involving right temporal lobe and left cerebellum. 2. Reported mild dementia Plan: 1. Await transesophageal echocardiogram results Time with Patient: Less than 30 (spent 20 minutes with patient via teleneurology)
[2019-12-22 16:56] LABS: Glucose,Whole Blood 360 mg/dL (75-99)
--- NOTE | 2019-12-22 17:34 | P.PN ---
Subjective Progress Note Date: 12/21/19 Principal diagnosis: Subacute stroke Ms. Ramirez is a 84-year-old female with a past medical history of that is mild as, COPD, pacemaker coming to the hospital with a chief complaint of generalized weakness. Patient had a CAT scan of the head showing subacute infarction and wa s admitted for further neurological evaluation. Patient had CT of the head showing low attenuation within the right temporal lobe and left cerebellum of indeterminant age may represent recent ischemia. Then eventually patient had CT angiography of the head and neck are that was limited due to patient motion artifact. It showed hyperplastic V4 segment in the right vertebral artery with moderate to severe chronic calcification at C3/C4 junction. 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 Ischemic changes in the left cerebellar hemisphere. Cardiology and neurology following the patient. On 12/21/2019- patient is sitting up in her bed appears to be no acute distress. She is eating her lunch. Patient denies having any chest pain or palpitations. No cough or difficulty in breathing. On reviewing the Vitas patient's blood pressure has been running on the higher side. projector operator showed ventricular paced rhythm. Echocardiogram done showing ejection fraction of 50- 55% with moderate concentric left hypertrophy, mild aortic valve sclerosis. On reviewing the patient's vitals blood pressure 161-72, heart rate 64, afebrile in the past 24 hours, saturating at 98% on room air. She had labs done, showing white count of 10.3, hemoglobin 12.5, platelets 204. Sodium 134, potassium 3.9, chloride 103, bicarbonate 23, BUN 13, creatinine of 0.53. Objective - Vital Signs Vital signs: Vital Signs Temp 98.0 F 12/21/19 08:00 Pulse 73 12/21/19 11:53 Resp 16 12/21/19 11:53 BP 180/41 12/21/19 12:49 Pulse Ox 97 12/21/19 11:53 Intake & Output 12/20/19 12/21/19 12/21/19 18:59 06:59 18:59 Intake Total 780 360 Balance 780 360 Weight 51.9 kg Intake: Oral 780 360 Other: # Voids 2 3 1 # Bowel Movements 2 1 - Exam GEN. APPEARANCE: alert, in no apparent distress HEENT - no pallor. No icterus. No JVD. RESPIRATORY EXAM: normal lung sounds bilaterally. No wheeze or crackles. CARDIOVASCULAR EXAM: regular rate, normal rhythm, normal heart sounds. GI/ABDOMINAL EXAM: soft, normal bowel sounds. EXTREMITIES EXAM: no pedal edema, no joint swelling, no calf tenderness NEUROLOGICAL EXAM: No focal neurological deficits. PSYCHIATRIC EXAM: normal affect, normal mood - Labs CBC & Chem 7: 12/21/19 06:51 12/21/19 06:51 Labs: Abnormal Lab Results - Last 24 Hours (Table) 12/20/19 12/20/19 12/21/19 Range/Units 16:56 19:58 06:18 RBC (3.80-5.40) m/uL MCV (80.0-100.0) fL Sodium (137-145) mmol/L Glucose (74-99) mg/dL POC Glucose (mg/dL) 259 H 327 H 198 H (75-99) mg/dL 12/21/19 12/21/19 12/21/19 Range/Units 06:51 06:51 11:51 RBC 3.71 L (3.80-5.40) m/uL MCV 100.4 H (80.0-100.0) fL Sodium 134 L (137-145) mmol/L Glucose 183 H (74-99) mg/dL POC Glucose (mg/dL) 344 H (75-99) mg/dL Assessment and Plan Assessment: ASSESSMENT Sub-acute stroke involving right temporal lobe and left cerebellum Nonischemic cardiomyopathy status post AICD in 2016 Type 2 diabetes mellitus Hypertension Hyperlipidemia Chronic low back pain History of breast cancer History of stomach ulcer PLAN: Patient is undergoing workup for subacute stroke by neurology and cardiology. Continue with aspirin, statin. Patient is scheduled for RICO on Monday by cardiology. Spoke with the patient's daughter Ms. Parks, and updated her patient's condition. All her questions were answered to the best of my ability. Continue with the current medication regimen. Further recommendations to follow depending on the progress of the patient.
--- NOTE | 2019-12-22 17:36 | P.PN ---
Subjective Progress Note Date: 12/22/19 Principal diagnosis: Subacute stroke involving the right temporal lobe and left cerebellum Ms. Ramirez is a 84-year-old female with a past medical history of that is mild as, COPD, pacemaker coming to the hospital with a chief complaint of generalized weakness. Patient had a CAT scan of the head showing subacute infarction and was admitted for further neurological evaluation. Patient had CT of the head showing low attenuation within the right temporal lobe and left cerebellum of indeterminant age may represent recent ischemia. Then eventually patient had CT angiography of the head and neck are that was limited due to patient motion artifact. It showed hyperplastic V4 segment in the right vertebral artery with moderate to severe chronic calcification at C3/C4 junction. 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 Ischemic changes in the left cerebellar hemisphere. Cardiology and neurology following the patient. On 12/21/2019- patient is sitting up in her bed appears to be no acute distress. She is eating her lunch. Patient denies having any chest pain or palpitations. No cough or difficulty in breathing. On reviewing the Vitas patient's blood pressure has been running on the higher side. [employer] showed ventricular paced rhythm. Echocardiogram done showing ejection fraction of 50- 55% with moderate concentric left hypertrophy, mild aortic valve sclerosis. On reviewing the patient's vitals blood pressure 161-72, heart rate 64, afebrile in the past 24 hours, saturating at 98% on room air. She had labs done, showing white count of 10.3, hemoglobin 12.5, platelets 204. Sodium 134, potassium 3.9, chloride 103, bicarbonate 23, BUN 13, creatinine of 0.53. On 12/22/2019 - patient is sitting up in her bed and having her lunch. She denies having any complaints of chest pain or palpitations. No cough or difficulty in breathing. She denies having any abdominal pain nausea vomiting or diarrhea. Patient denies having any weakness of her extremities, headaches, speech abnormalities. On reviewing her vitals temperature 90.8, heart rate 64, respiratory rate 16, blood pressure 1 61 x 72, saturating at 98% on room air. Patient's blood sugars have been running slightly on the higher side today. Active Medications Acetaminophen (Acetaminophen Tab 325 Mg Tab) 650 mg PO Q6HR PRN PRN Reason: Pain Ascorbic Acid (Ascorbic Acid 500 Mg Tab) 500 mg PO DAILY [facility] Last Admin: 12/22/19 09:07 Dose: 500 mg Documented by: Aspirin (Aspirin 325 Mg Tab) 325 mg PO DAILY [facility] Last Admin: 12/22/19 09:07 Dose: 325 mg Documented by: Atorvastatin Calcium (Atorvastatin 40 Mg Tab) 40 mg PO [facility] Last Admin: 12/21/19 20:29 Dose: 40 mg Documented by: Carvedilol (Carvedilol 12.5 Mg Tab) 25 mg PO [facility] Last Admin: 12/21/19 20:30 Dose: 25 mg Documented by: Cholecalciferol (Cholecalciferol 1,000 Unit Tab) 1,000 unit PO [facility] Last Admin: 12/21/19 20:29 Dose: 1,000 unit Documented by: Cyanocobalamin (Cyanocobalamin 500 Mcg Tab) 2,500 mcg PO [facility] Last Admin: 12/21/19 20:30 Dose: 2,500 mcg Documented by: Ferrous Sulfate (Ferrous Sulfate 325 Mg Tab) 325 mg PO [facility] Last Admin: 12/21/19 20:30 Dose: 325 mg Documented by: Glimepiride (Glimepiride 4 Mg Tab) 4 mg PO [facility] Last Admin: 12/21/19 20:30 Dose: 4 mg Documented by: Sodium Chloride (Saline 0.9%) 1,000 mls @ 100 mls/hr IV .Q10H [facility] Last Admin: 12/22/19 12:55 Dose: Not Given Documented by: Insulin Aspart (Insulin Aspart (Novolog) 100 Unit/Ml Vial) 0 unit SQ [facility]; Protocol Last Admin: 12/22/19 17:05 Dose: 10 unit Documented by: Losartan Potassium (Losartan 50 Mg Tab) 50 mg PO DAILY [facility] Memantine (Memantine 10 Mg Tab) 10 mg PO [facility] Last Admin: 12/21/19 20:30 Dose: 10 mg Documented by: Metformin HCl (Metformin 500 Mg Tab) 500 mg PO [facility] Last Admin: 12/21/19 20:30 Dose: 500 mg Documented by: Multivitamins (Multivitamins, Thera 1 Each Tab) 1 each PO [facility] Last Admin: 12/21/19 20:29 Dose: 1 each Documented by: Naproxen (Naproxen 250 Mg Tab) 250 mg PO HS PRN PRN Reason: Pain Spironolactone (Spironolactone 25 Mg Tab) 25 mg PO HS [facility] Last Admin: 12/21/19 20:30 Dose: 25 mg Documented by: Zinc Sulfate (Zinc Sulfate 220 Mg Cap) 220 mg PO HS [facility] Last Admin: 12/21/19 20:30 Dose: 220 mg Documented by: Objective - Vital Signs Vital signs: Vital Signs Temp 98.0 F 12/22/19 08:00 Pulse 69 12/22/19 12:00 Resp 16 12/22/19 12:00 BP 184/68 12/22/19 12:00 Pulse Ox 99 12/22/19 12:00 Intake & Output 12/21/19 12/22/19 12/22/19 18:59 06:59 18:59 Intake Total 837 100 Balance 837 100 Weight 52.3 kg Intake: Intake, IV Titration 100 Amount Sodium Chloride 0.9% 1, 100 000 ml @ 100 mls/hr IV . Q10H [facility] Rx#:[id number] Oral 837 Other: # Voids 1 2 # Bowel Movements 1 - Exam GEN. APPEARANCE: alert, in no apparent distress HEENT - no pallor. No icterus. No JVD. RESPIRATORY EXAM: normal lung sounds bilaterally. No wheeze or crackles. CARDIOVASCULAR EXAM: regular rate, normal rhythm, normal heart sounds. GI/ABDOMINAL EXAM: soft, normal bowel sounds. EXTREMITIES EXAM: no pedal edema, no joint swelling, no calf tenderness NEUROLOGICAL EXAM: No focal neurological deficits. Speech is normal. No facial droop. PSYCHIATRIC EXAM: normal affect, normal mood - Labs CBC & Chem 7: 12/21/19 06:51 12/21/19 06:51 Labs: Abnormal Lab Results - Last 24 Hours (Table) 12/21/19 12/21/19 12/21/19 Range/Units 06:51 16:56 20:07 POC Glucose (mg/dL) 295 H 204 H (75-99) mg/dL Hemoglobin A1c 8.8 H (4.0-6.0) % 12/22/19 12/22/19 Range/Units 06:07 12:18 POC Glucose (mg/dL) 144 H 208 H (75-99) mg/dL Hemoglobin A1c (4.0-6.0) % Assessment and Plan Assessment: ASSESSMENT Sub-acute stroke involving right temporal lobe and left cerebellum Nonischemic cardiomyopathy status post AICD in 2016 Type 2 diabetes mellitus Hypertension Hyperlipidemia Chronic low back pain History of breast cancer History of stomach ulcer PLAN: Patient is undergoing workup for subacute stroke by neurology and cardiology. Continue with aspirin, statin. Patient is scheduled for RICO on Monday morning by cardiology. Continue with the current medication regimen. Further recommendations to follow depending on the progress of the patient.
[2019-12-22 20:06] LABS: Glucose,Whole Blood 185 mg/dL (75-99)
[2019-12-22] MEDS: ATORVASTATIN 40 MG TAB PO SCH (20:43)
[2019-12-22] MEDS: GLIMEPIRIDE 4 MG TAB PO SCH (20:43)
[2019-12-22] MEDS: ZINC SULFATE 220 MG CAP PO SCH (20:43)
[2019-12-22] MEDS: carvediloL 12.5 MG TAB PO SCH (20:43)
[2019-12-22] MEDS: MULTIVITAMINS, THERA 1 EACH TAB PO SCH (20:44)
[2019-12-22] MEDS: ENOXAPARIN 40 MG/0.4 ML SYRINGE SQ SCH (20:44)
[2019-12-22] MEDS: FERROUS SULFATE 325 MG TAB PO SCH (20:44)
[2019-12-22] MEDS: metFORMIN 500 MG TAB PO SCH (20:44)
[2019-12-22] MEDS: CHOLECALCIFEROL 1,000 UNIT TAB PO SCH (20:44)
[2019-12-22] MEDS: CYANOCOBALAMIN 500 MCG TAB PO SCH (20:44)
[2019-12-22] MEDS: SPIRONOLACTONE 25 MG TAB PO SCH (20:44)
[2019-12-22] MEDS: MEMANTINE 10 MG TAB PO SCH (20:44)
[2019-12-23 06:18] LABS: Glucose,Whole Blood 103 mg/dL (75-99)
[2019-12-23] MEDS: INSULIN ASPART (NovoLOG) 100 UNIT/ML VIAL SQ SCH ×4 (06:26→21:29)
[2019-12-23] MEDS ORDERED: fentaNYL (PF) 50 MCG/ML 2 ML AMP ONE (07:05)
[2019-12-23] MEDS ORDERED: IV FLUID CONTINUATION 1,000 ML IV ONE (07:07)
[2019-12-23] MEDS ORDERED: MIDAZOLAM 2 MG/2 ML VIAL IV ONE (07:15)
[2019-12-23] MEDS ORDERED: BENZOCAINE SPRAY 1 CAN MUCOUS MEM ONE (07:15)
[2019-12-23] MEDS ORDERED: fentaNYL (PF) 50 MCG/ML 2 ML AMP IV ONE (07:15)
--- NOTE | 2019-12-23 08:06 | P.PN ---
Subjective Progress Note Date: 12/23/19 Principal diagnosis: the patient is an 84-year-old white female with cardioembolic CVA. The patient is resting comfortably at this time. Appreciate multiple consultants input. No voiding difficulty stated. the patient had RICO done. Awaiting results. Objective - Vital Signs Vital signs: Vital Signs Temp 98.7 F 12/23/19 05:00 Pulse 57 L 12/23/19 07:25 Resp 16 12/23/19 07:25 BP 140/59 12/23/19 07:25 Pulse Ox 98 12/23/19 07:25 Intake & Output 12/22/19 12/23/19 12/23/19 18:59 06:59 18:59 Intake Total 100 50 Balance 100 50 Weight 50.5 kg Intake: IV 50 Intake, IV Titration 100 Amount Sodium Chloride 0.9% 1, 100 000 ml @ 100 mls/hr IV . Q10H [facility] Rx#:[id number] Other: Voiding Method Toilet # Voids 3 1 - Constitutional General appearance: Present: average body habitus - EENT Eyes: Absent: abnormal pupil - Neck Neck: Absent: lymphadenopathy - Respiratory Respiratory: bilateral: CTA - Cardiovascular Rhythm: regular Heart sounds: normal: S1, S2 Abnormal Heart Sounds: Absent: S3 Gallop - Gastrointestinal General gastrointestinal: Present: soft. Absent: tenderness - Integumentary Integumentary: Absent: cellulitis - Labs CBC & Chem 7: 12/21/19 06:51 12/21/19 06:51 Labs: Abnormal Lab Results - Last 24 Hours (Table) 12/22/19 12/22/19 12/22/19 Range/Units 12:18 16:55 20:05 POC Glucose (mg/dL) 208 H 360 H 185 H (75-99) mg/dL 12/23/19 Range/Units 06:17 POC Glucose (mg/dL) 103 H (75-99) mg/dL Assessment and Plan (1) CVA (cerebral vascular accident) Current Visit: Yes Status: Acute Code(s): I63.9 - CEREBRAL INFARCTION, UNSPECIFIED SNOMED Code(s): 379292242 (2) Weakness Current Visit: Yes Status: Acute Code(s): R53.1 - WEAKNESS SNOMED Code(s): 98417748 Plan: continue rehab element. Discharge planning. Appreciate neurology input. Check CBC and CMP in a.m.
[2019-12-23] MEDS ORDERED: ENOXAPARIN 40 MG/0.4 ML SYRINGE SQ SCH (09:00)
[2019-12-23] MEDS: ASPIRIN 325 MG TAB PO SCH (09:10)
[2019-12-23] MEDS: ASCORBIC ACID 500 MG TAB PO SCH (09:10)
[2019-12-23] MEDS: LOSARTAN 50 MG TAB PO SCH (09:10)
[2019-12-23] MEDS: ENOXAPARIN 40 MG/0.4 ML SYRINGE SQ SCH (09:10)
[2019-12-23 09:25] LABS: Basophils % (A) 1 %; Eosinophils # (A) 0.3 k/uL (0-0.7); Eosinophils % (A) 4 %; HCT 37.1 % (34.0-46.0); HGB 12.3 gm/dL (11.4-16.0); Lymphocytes # (A) 2.1 k/uL (1.0-4.8); Lymphocytes % (A) 25 %; MCH 32.2 pg (25.0-35.0); MCV 97.6 fL (80.0-100.0); Mean Platelet Volume 8.5; Monocytes # (A) 0.7 k/uL (0-1.0); Monocytes % (A) 9 %; Neutrophils # (A) 4.8 k/uL (1.3-7.7); Neutrophils % (A) 58 %; Platelet Count 220 k/uL (150-450); RDW 13.9 % (11.5-15.5); WBC 8.2 k/uL (3.8-10.6)
[2019-12-23 09:35] LABS: African American GFR (CKD) >90 (>60 ml/min/1.73 sqM); Anion Gap 8 mmol/L; Blood Urea Nitrogen 15 mg/dL (7-17); Calcium 9.1 mg/dL (8.4-10.2); Carbon Dioxide 22 mmol/L (22-30); Chloride 101 mmol/L (98-107); Glucose 110 mg/dL (74-99); Non-African American GFR(CKD) 86 (>60 ml/min/1.73 sqM); Potassium 4.5 mmol/L (3.5-5.1); Sodium 131 mmol/L (137-145)
--- NOTE | 2019-12-23 10:45 | EST ---
EXERCISE STRESS INDICATION: Evaluation of intracardiac thrombus source. PROCEDURE: After explaining the procedure to the patient, as well as its risks and complication, blood pressure, heart rate, O2 saturation was monitored. The throat was sprayed with Cetacaine. She received 1 mg intravenous Versed, 50 mcg intravenous fentanyl. The probe was introduced into the esophagus without difficulty. Images were obtained. Following that, the probe was removed, there was no immediate complication. FINDINGS: Left atrial size is normal. Left atrial appendage is normal. The interatrial septum is minimally mobile. The mitral valve revealed mild thickening of the mitral valve leaflets with mitral annular calcification. The tricuspid valve is normal, wires were noted in the right ventricle and right atrium. The aortic valve have mild fibrocalcific change with aortic cusp with preserved opening. A fibrillar stoma was noted in the aortic side of the aortic valve measuring 0.8 cm. The descending thoracic aorta appears to be normal. Contrast bubble study revealed no evidence of shunting across the interatrial septum. Doppler pulse wave and color Doppler obtained, revealed mild mitral, aortic and tricuspid regurgitation. There was no evidence of shunting across the interatrial septum. CONCLUSION: 1. Normal appearance left atrial appendage. 2. Normal left ventricular size and systolic function. 3. A wire was noted in the right ventricle. 4. 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 5. Mild mitral and tricuspid regurgitation. 6. Normal appearance of descending thoracic aorta. 7. No pericardial effusion. MMODL / IJN: [id number] / MTDD
[2019-12-23 12:17] LABS: Glucose,Whole Blood 139 mg/dL (75-99)
[2019-12-23 16:59] LABS: Glucose,Whole Blood 199 mg/dL (75-99)
--- NOTE | 2019-12-23 17:56 | P.PN ---
Subjective Progress Note Date: 12/23/19 Patient was seen for a follow-up. Patient initially seen by Dr. Devon Mcconnell on 12/20/2019. Please refer to his note for details. Patient states she came to the hospital because she was falling all the time, 1- 2 dry times a week, no nausea vomiting. Denies any numbness or tingling. Patient has decreased hearing. Patient has been falling for "quite a while". Also complained of generalized weakness. Computed tomography scan of the head showed subacute stroke in the right temporal as well as left cerebellar region, concerning for cardioembolic event. Patient has history of diabetes for 1-2 years. Patient was not taking any aspirin prior to this admission. Patient's telemetry monitoring showing sinus bradycardia, V paced rhythm. Objective - Vital Signs Vital signs: Vital Signs Temp 98.7 F 12/23/19 05:00 Pulse 63 12/23/19 12:25 Resp 16 12/23/19 15:53 BP 149/64 12/23/19 12:25 Pulse Ox 99 12/23/19 14:00 Intake & Output 12/22/19 12/23/19 12/23/19 18:59 06:59 18:59 Intake Total 100 290 Balance 100 290 Weight 50.5 kg Intake: IV 50 Intake, IV Titration 100 Amount Sodium Chloride 0.9% 1, 100 000 ml @ 100 mls/hr IV . Q10H RJ Rx#:[id number] Oral 240 Other: Voiding Method Toilet Toilet # Voids 3 1 1 - Exam On examination patient is an elderly female, in no acute distress. Patient is alert and awake in no distress. Patient is fully oriented. Patient knows it is Monday, and the current date is 12/23/2019. She knows she is in [facility] in [facility]. Patient is hard of hearing. On cranial exertion there is no facial droop, pupils are round and reacting, visual larsen are full. On muscle strength testing there is no pronator drift and the strength is normal in arms and legs. No ataxia for [id number] testing, gait deferred. Sensations equal. - Labs CBC & Chem 7: 12/23/19 08:37 12/23/19 08:37 Labs: Abnormal Lab Results - Last 24 Hours (Table) 12/22/19 12/23/19 12/23/19 Range/Units 20:05 06:17 08:37 Sodium 131 L (137-145) mmol/L Glucose 110 H (74-99) mg/dL POC Glucose (mg/dL) 185 H 103 H (75-99) mg/dL 12/23/19 12/23/19 Range/Units 11:56 16:47 Sodium (137-145) mmol/L Glucose (74-99) mg/dL POC Glucose (mg/dL) 139 H 199 H (75-99) mg/dL Assessment and Plan Assessment: * Possible subacute stroke. Current examination is relatively nonfocal. * Recurrent falls, due to above. * Pacemaker. Plan: * Patient underwent RICO today. It revealed normal appearance of left atrial appendage. Normal left ventricle size and systolic function. I wire was noted in the right ventricle. 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 Mild mitral and tricuspid regurgitation. Normal appearance of descending thoracic aorta. Cardiology is on board to address findings noted on the RICO. * CTA of head and neck showed bilateral stenosis of the distal vertebral arteries that is more severe on the right side. Diminutive basilar artery. 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 Ischemic changes in the left cerebellar hemisphere. Stenosis of the internal carotid arteries bilaterally and more on the right side in the bifurcation. 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 Patient cannot have MRI due to pacemaker. * Hemoglobin A1c 8.8, lipid panel with cholesterol 107, LDL 38, HDL 42, triglycerides 136. * Patient currently on aspirin 325 mg and Lipitor 40 mg. Suggest follow-up with neuro intervention as outpatient for possible 3 mm right MCA aneurysm, and also to address vertebral artery stenosis noted in the CTA of head and neck. Continue aspirin, statins. Optimize diabetes to target A1c <7.0. PT and OT.
[2019-12-23] MEDS: SODIUM CHLORIDE 0.9% 1,000 ML IV SCH ×3 (19:30→19:32)
[2019-12-23 20:56] LABS: Glucose,Whole Blood 188 mg/dL (75-99)
[2019-12-23] MEDS: CYANOCOBALAMIN 500 MCG TAB PO SCH (21:28)
[2019-12-23] MEDS: MEMANTINE 10 MG TAB PO SCH (21:28)
[2019-12-23] MEDS: MULTIVITAMINS, THERA 1 EACH TAB PO SCH (21:28)
[2019-12-23] MEDS: FERROUS SULFATE 325 MG TAB PO SCH (21:28)
[2019-12-23] MEDS: ZINC SULFATE 220 MG CAP PO SCH (21:28)
[2019-12-23] MEDS: metFORMIN 500 MG TAB PO SCH (21:29)
[2019-12-23] MEDS: ATORVASTATIN 40 MG TAB PO SCH (21:29)
[2019-12-23] MEDS: GLIMEPIRIDE 4 MG TAB PO SCH (21:29)
[2019-12-23] MEDS: SPIRONOLACTONE 25 MG TAB PO SCH (21:29)
[2019-12-23] MEDS: carvediloL 12.5 MG TAB PO SCH (21:29)
[2019-12-23] MEDS: CHOLECALCIFEROL 1,000 UNIT TAB PO SCH (21:29)
[2019-12-24 06:28] LABS: Glucose,Whole Blood 135 mg/dL (75-99)
[2019-12-24] MEDS: SODIUM CHLORIDE 0.9% 1,000 ML IV SCH ×2 (06:42→06:49)
[2019-12-24] MEDS: INSULIN ASPART (NovoLOG) 100 UNIT/ML VIAL SQ SCH ×4 (06:48→22:55)
--- NOTE | 2019-12-24 08:36 | P.PN ---
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 The patient is resting comfortably at this time. Appreciate multiple consultants input. No voiding difficulty stated. the patient had RICO done. Awaiting results. However, I suspect given the fact that she needs help with transferring, she might need home health versus ECF. Objective - Vital Signs Vital signs: Vital Signs Temp 97.9 F 12/23/19 20:00 Pulse 71 12/24/19 04:00 Resp 18 12/24/19 04:00 BP 144/65 12/24/19 04:00 Pulse Ox 97 12/24/19 04:00 Intake & Output 12/23/19 12/24/19 12/24/19 18:59 06:59 18:59 Intake Total 770 Balance 770 Weight 51.5 kg Intake: IV 50 Oral 720 Other: Voiding Method Toilet Toilet # Voids 2 1 - Constitutional General appearance: Present: average body habitus - EENT Eyes: Absent: abnormal pupil - Respiratory Respiratory: bilateral: CTA - Cardiovascular Rhythm: regular Heart sounds: normal: S1, S2 Abnormal Heart Sounds: Absent: S3 Gallop - Gastrointestinal General gastrointestinal: Present: soft. Absent: tenderness - Neurologic Neurologic: Absent: CNII-XII intact - Labs CBC & Chem 7: 12/23/19 08:37 12/23/19 08:37 Labs: Abnormal Lab Results - Last 24 Hours (Table) 12/23/19 12/23/19 12/23/19 Range/Units 08:37 11:56 16:47 Sodium 131 L (137-145) mmol/L Glucose 110 H (74-99) mg/dL POC Glucose (mg/dL) 139 H 199 H (75-99) mg/dL 12/23/19 12/24/19 Range/Units 20:54 06:26 Sodium (137-145) mmol/L Glucose (74-99) mg/dL POC Glucose (mg/dL) 188 H 135 H (75-99) mg/dL Assessment and Plan (1) CVA (cerebral vascular accident) Current Visit: Yes Status: Acute Code(s): I63.9 - CEREBRAL INFARCTION, UNSPECIFIED SNOMED Code(s): 721549571 (2) Weakness Current Visit: Yes Status: Acute Code(s): R53.1 - WEAKNESS SNOMED Code(s): 26720426 Plan: continue rehab element. Discharge planning. Anticipate discharge once cleared by neurology.
[2019-12-24] MEDS: ASPIRIN 325 MG TAB PO SCH (08:42)
[2019-12-24] MEDS: ENOXAPARIN 40 MG/0.4 ML SYRINGE SQ SCH (08:42)
[2019-12-24] MEDS: LOSARTAN 50 MG TAB PO SCH (08:42)
[2019-12-24] MEDS: ASCORBIC ACID 500 MG TAB PO SCH (08:42)
[2019-12-24 09:21] LABS: HCT 40.8 % (34.0-46.0); HGB 13.8 gm/dL (11.4-16.0); MCH 33.1 pg (25.0-35.0); MCHC 33.8 g/dL (31.0-37.0); MCV 97.8 fL (80.0-100.0); Mean Platelet Volume 8.8; Platelet Count 281 k/uL (150-450); RBC 4.17 m/uL (3.80-5.40); RDW 13.3 % (11.5-15.5); WBC 9.9 k/uL (3.8-10.6)
[2019-12-24 09:36] LABS: ALT 25 U/L (4-34); AST 33 U/L (14-36); African American GFR (CKD) >90 (>60 ml/min/1.73 sqM); Albumin 5.1 g/dL (3.5-5.0); Alkaline Phosphatase 68 U/L (38-126); Anion Gap 10 mmol/L; Blood Urea Nitrogen 10 mg/dL (7-17); Calcium 9.9 mg/dL (8.4-10.2); Carbon Dioxide 28 mmol/L (22-30); Chloride 96 mmol/L (98-107); Glucose 114 mg/dL (74-99); Non-African American GFR(CKD) 84 (>60 ml/min/1.73 sqM); Potassium 4.7 mmol/L (3.5-5.1); Sodium 134 mmol/L (137-145); Total Bilirubin 0.8 mg/dL (0.2-1.3); Total Protein 7.7 g/dL (6.3-8.2)
--- NOTE | 2019-12-24 11:01 | P.PN ---
Subjective Progress Note Date: 12/24/19 This is a pleasant 84-year-old female with past medical history significant for coronary artery disease, ischemic cardio myopathy with prior AICD implantation, diabetes, hyperlipidemia, COPD, she presented to the hospital with a subacute CVA. Underwent a RICO yesterday by Dr. Cash, revealed normal appearance of left atrial appendage, normal left ventricular size and systolic function, a wire was noted in the right ventricle fibroblastoma was noted on the aortic valve in the outflow with mild aortic regurgitation, mild mitral and tricuspid regurg, normal appearing descending thoracic aorta, no pericardial effusion. No evidence of shunting. Blood pressure this morning 148/60 with a heart rate in the 70s, 98% on room air. White blood cell count 9.9, hemoglobin 13.8, platelet count 281. Sodium 134, potassium 4.7, BUN 10, creatinine 0.6. Objective - Vital Signs Vital signs: Vital Signs Temp 97.3 F L 12/24/19 08:35 Pulse 72 12/24/19 08:35 Resp 18 12/24/19 08:35 BP 149/68 12/24/19 08:35 Pulse Ox 98 12/24/19 08:35 Intake & Output 12/23/19 12/24/19 12/24/19 18:59 06:59 18:59 Intake Total 770 720 Balance 770 720 Weight 51.5 kg Intake: IV 50 Oral 720 720 Other: Voiding Method Toilet Toilet # Voids 2 1 1 - Exam PHYSICAL EXAMINATION: GENERAL: 84-year-old female in no acute distress at the time of my examination HEENT: Head is atraumatic, normocephalic. Pupils equal, round. Sclera anicteric. Conjunctiva are clear. Mucous membranes of the mouth are moist. Neck is supple. There is no elevated jugular venous pressure. No carotid bruit is heard. HEART EXAMINATION: Heart S1 and S2 systolic murmur is heard CHEST EXAMINATION: Lungs are clear to auscultation and precussion. No chest wall tenderness is noted on palpation or with deep breathing. ABDOMEN: Soft, nontender. Bowel sounds are heard. No organomegaly noted. EXTREMITIES: 2+ peripheral pulses with no evidence of peripheral edema and no calf tenderness noted. NEUROLOGIC [patient is awake, alert and oriented 3 . No evidence of facial droop, pupils are round and reacting, visual larsen are full. Muscle strength does not reveal any pronator drift and her strength is normal bilaterally. . - Labs CBC & Chem 7: 12/24/19 08:14 12/24/19 08:14 Labs: Abnormal Lab Results - Last 24 Hours (Table) 12/23/19 12/23/19 12/23/19 Range/Units 11:56 16:47 20:54 Sodium (137-145) mmol/L Chloride (98-107) mmol/L Glucose (74-99) mg/dL POC Glucose (mg/dL) 139 H 199 H 188 H (75-99) mg/dL Albumin (3.5-5.0) g/dL 12/24/19 12/24/19 Range/Units 06:26 08:14 Sodium 134 L (137-145) mmol/L Chloride 96 L (98-107) mmol/L Glucose 114 H (74-99) mg/dL POC Glucose (mg/dL) 135 H (75-99) mg/dL Albumin 5.1 H (3.5-5.0) g/dL Assessment and Plan Plan: Assessment and Plan #1 possible subacute CVA, RICO did not reveal any evidence of thrombus, no evide nce of shunting #2 diabetes #3 hypertension #4 family history of premature coronary artery disease #5 coronary artery disease, cardiac cath was performed in 2016 which revealed mild to moderate triple-vessel coronary artery disease with severely impaired systolic function, medical therapy advised. #6 ischemic cardiomyopathy with prior AICD Plan No evidence of any atrial fibrillation on the monitor. From cardiology's perspective, we'll follow this patient along with you now on an as-needed basis only. We will make her a follow-up appointment with Dr. Cash in the office post discharge. DNP note has been reviewed, I agree with a documented findings and plan of care. Patient was seen and examined.
[2019-12-24 11:50] LABS: Glucose,Whole Blood 137 mg/dL (75-99)
[2019-12-24 16:56] LABS: Glucose,Whole Blood 204 mg/dL (75-99)
--- NOTE | 2019-12-24 17:39 | P.PN ---
Subjective Progress Note Date: 12/24/19 Patient was seen for a follow-up. Patient offers no complaints today. Patient initially seen by Dr. Devon Mcconnell on 12/20/2019. Please refer to his note for details. Patient states she came to the hospital because she was falling all the time, 1- 2 dry times a week, no nausea vomiting. Denies any numbness or tingling. Patient has decreased hearing. Patient has been falling for "quite a while". Also complained of generalized weakness. Computed tomography scan of the head showed subacute stroke in the right temporal as well as left cerebellar region, concerning for cardioembolic event. Patient has history of diabetes for 1-2 years. Patient was not taking any aspirin prior to this admission. Patient's telemetry monitoring showing sinus bradycardia, V paced rhythm in the last 24 hours. Objective - Vital Signs Vital signs: Vital Signs Temp 97.8 F 12/24/19 16:46 Pulse 83 12/24/19 16:46 Resp 18 12/24/19 16:46 BP 163/87 12/24/19 16:46 Pulse Ox 98 12/24/19 12:00 Intake & Output 12/23/19 12/24/19 12/24/19 18:59 06:59 18:59 Intake Total 770 840 Balance 770 840 Weight 51.5 kg Intake: IV 50 Oral 720 840 Other: Voiding Method Toilet Toilet # Voids 2 1 1 # Bowel Movements 0 - Exam On examination patient is an elderly female, in no acute distress. Patient is alert and awake in no distress. Patient is fully oriented. Patient is hard of hearing. On cranial exertion there is no facial droop, pupils are round and reacting, visual larsen are full. On muscle strength testing there is no pronator drift and the strength is normal in arms and legs. No ataxia for [id number]-ar-[id number] testing, gait deferred. Sensations equal. - Labs CBC & Chem 7: 12/24/19 08:14 12/24/19 08:14 Labs: Abnormal Lab Results - Last 24 Hours (Table) 12/23/19 12/24/19 12/24/19 Range/Units 20:54 06:26 08:14 Sodium 134 L (137-145) mmol/L Chloride 96 L (98-107) mmol/L Glucose 114 H (74-99) mg/dL POC Glucose (mg/dL) 188 H 135 H (75-99) mg/dL Albumin 5.1 H (3.5-5.0) g/dL 12/24/19 12/24/19 Range/Units 11:38 16:47 Sodium (137-145) mmol/L Chloride (98-107) mmol/L Glucose (74-99) mg/dL POC Glucose (mg/dL) 137 H 204 H (75-99) mg/dL Albumin (3.5-5.0) g/dL Assessment and Plan Assessment: * Possible subacute stroke. Current examination is relatively nonfocal. * Recurrent falls, due to above. * Pacemaker. Plan: * RICO revealed normal appearance of left atrial appendage. Normal left ventricle size and systolic function. A wire was noted in the right ventricle. 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 Mild mitral and tricuspid regurgitation. Normal appearance of descending thoracic aorta. Cardiology is on board to address findings noted on the RICO. No obvious embolic source. No A. fib on telemetry. * CTA of head and neck showed bilateral stenosis of the distal vertebral arteries that is more severe on the right side. Diminutive basilar artery. 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 Ischemic changes in the left cerebellar hemisphere. Stenosis of the internal carotid arteries bilaterally and more on the right side in the bifurcation. 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 Patient cannot have MRI due to pacemaker. * Hemoglobin A1c 8.8, lipid panel with cholesterol 107, LDL 38, HDL 42, triglycerides 136. * Patient currently on aspirin 325 mg and Lipitor 40 mg. Suggest follow-up with neuro intervention as outpatient for possible 3 mm right MCA aneurysm, and also to address vertebral artery stenosis noted in the CTA of head and neck. Continue aspirin, statins. Optimize diabetes to target A1c <7.0. PT and OT. Neurologically otherwise clear.
[2019-12-24 21:28] LABS: Glucose,Whole Blood 130 mg/dL (75-99)
[2019-12-24] MEDS: ATORVASTATIN 40 MG TAB PO SCH (22:49)
[2019-12-24] MEDS: MULTIVITAMINS, THERA 1 EACH TAB PO SCH (22:49)
[2019-12-24] MEDS: CHOLECALCIFEROL 1,000 UNIT TAB PO SCH (22:49)
[2019-12-24] MEDS: metFORMIN 500 MG TAB PO SCH (22:49)
[2019-12-24] MEDS: CYANOCOBALAMIN 500 MCG TAB PO SCH (22:49)
[2019-12-24] MEDS: FERROUS SULFATE 325 MG TAB PO SCH (22:53)
[2019-12-24] MEDS: MEMANTINE 10 MG TAB PO SCH (22:53)
[2019-12-24] MEDS: carvediloL 12.5 MG TAB PO SCH (22:53)
[2019-12-24] MEDS: GLIMEPIRIDE 4 MG TAB PO SCH (22:59)
[2019-12-24] MEDS: ZINC SULFATE 220 MG CAP PO SCH (23:03)
[2019-12-24] MEDS: SPIRONOLACTONE 25 MG TAB PO SCH (23:06)
[2019-12-25 06:31] LABS: Glucose,Whole Blood 149 mg/dL (75-99)
[2019-12-25] MEDS: INSULIN ASPART (NovoLOG) 100 UNIT/ML VIAL SQ SCH ×2 (06:51→12:56)
[2019-12-25] MEDS: ASPIRIN 325 MG TAB PO SCH (08:24)
[2019-12-25] MEDS: ENOXAPARIN 40 MG/0.4 ML SYRINGE SQ SCH (08:24)
[2019-12-25] MEDS: ASCORBIC ACID 500 MG TAB PO SCH (08:24)
[2019-12-25] MEDS: LOSARTAN 50 MG TAB PO SCH (08:24)
--- NOTE | 2019-12-25 08:48 | P.DS ---
Providers Date of admission: 12/19/19 14:29 Attending physician: Reji Montgomery Consults: 12/19/19 14:30 Consult Physician Routine Consulting Provider: Devon Mcconnell Consult Reason/Comments: CVA Do you want consulting provider notified?: Yes 12/20/19 10:53 Consult Physician Routine Consulting Provider: José Miguel Lee Consult Reason/Comments: stroke. Seem cardioembolic. Recommend RICO Do you want consulting provider notified?: Yes Primary care physician: Reji Montgomery - Discharge Diagnosis(es) (1) CVA (cerebral vascular accident) Current Visit: Yes Status: Acute (2) Weakness Current Visit: Yes Status: Acute Hospital Course: The patient is here essentially for subacute CVA. Appropriate treatment was done with neurology and the patient was stabilized. She has some difficulty with transfer but with assistance can do it. She'll discharged in stable condition with home health. She'll follow-up with me in 3 days. Patient Condition at Discharge: Serious Plan - Discharge Summary Discharge Rx Participant: No New Discharge Prescriptions: New Aspirin 325 mg PO DAILY tab Losartan [Cozaar] 50 mg PO DAILY #30 tab Atorvastatin [Lipitor] 40 mg PO HS #30 tab Continue Glimepiride 4 mg PO HS Multivitamins, Thera [Multivitamin (formulary)] 1 tab PO HS Carvedilol 25 mg PO HS Memantine [Namenda] 10 mg PO HS Ascorbic Acid [Vitamin C] 500 mg PO DAILY Cholecalciferol [Vitamin D3 (25 Mcg = 1000 Iu)] 1,000 unit PO HS Cyanocobalamin (Vitamin B-12) [Vitamin B-12] 2,500 mcg PO HS Ferrous Sulfate [Iron (65 MG Elemental)] 325 mg PO HS Fish Oil/Dha/Epa [Fish Oil 1,200 mg Fish Oil] 1 tab PO HS metFORMIN HCL 500 mg PO HS Mv-Min/Folic/Vit [id number] [Alive Women's 50 Plus Tablet] 1 tab PO HS Naproxen Sodium [Aleve] 220 mg PO HS PRN PRN Reason: Pain Potassium Gluconate 99 mg PO HS Spironolactone [Aldactone] 25 mg PO HS Ubidecarenone [Co Q-10] 200 mg PO HS Zinc Gluconate [Zinc] 50 mg PO HS Timolol 0.5% Ophth Soln [Timoptic 0.5% Ophth Soln] 1 drop OPHTHALMIC DAILY Travoprost 1 drop BOTH EYES HS Discontinued Atorvastatin [Lipitor] 20 mg PO Q48H Discharge Medication List Glimepiride 4 mg PO HS 08/12/15 [History] Multivitamins, Thera [Multivitamin (formulary)] 1 tab PO HS 08/12/15 [History] Ascorbic Acid [Vitamin C] 500 mg PO DAILY 12/19/19 [History] Carvedilol 25 mg PO HS 12/19/19 [History] Cholecalciferol [Vitamin D3 (25 Mcg = 1000 Iu)] 1,000 unit PO HS 12/19/19 [History] Cyanocobalamin (Vitamin B-12) [Vitamin B-12] 2,500 mcg PO HS 12/19/19 [History] Ferrous Sulfate [Iron (65 MG Elemental)] 325 mg PO HS 12/19/19 [History] Fish Oil/Dha/Epa [Fish Oil 1,200 mg Fish Oil] 1 tab PO HS 12/19/19 [History] Memantine [Namenda] 10 mg PO HS 12/19/19 [History] Mv-Min/Folic/Vit [id number] [Alive Women's 50 Plus Tablet] 1 tab PO HS 12/19/19 [History] Naproxen Sodium [Aleve] 220 mg PO HS PRN 12/19/19 [History] Potassium Gluconate 99 mg PO HS 12/19/19 [History] Spironolactone [Aldactone] 25 mg PO HS 12/19/19 [History] Ubidecarenone [Co Q-10] 200 mg PO HS 12/19/19 [History] Zinc Gluconate [Zinc] 50 mg PO HS 12/19/19 [History] metFORMIN HCL 500 mg PO HS 12/19/19 [History] Timolol 0.5% Ophth Soln [Timoptic 0.5% Ophth Soln] 1 drop OPHTHALMIC DAILY 12/21/19 [History] Travoprost 1 drop BOTH EYES HS 12/21/19 [History] Aspirin 325 mg PO DAILY tab 12/25/19 [Rx] Atorvastatin [Lipitor] 40 mg PO HS #30 tab 12/25/19 [Rx] Losartan [Cozaar] 50 mg PO DAILY #30 tab 12/25/19 [Rx] Follow up Appointment(s)/Referral(s): [facility], [NON-STAFF] - Reji Montgomery MD [Primary Care Provider] - 3 Days Discharge Disposition: HOME WITH HOME HEALTH SERVICES
[2019-12-25 10:38] VITALS: BP 139/77; PULSE 75; RESP 18; TEMP 97.6
[2019-12-25 11:41] LABS: Glucose,Whole Blood 223 mg/dL (75-99)
== END 2019-12-25 13:32 | disposition home health service (06) | DRG 66 ==
LOC: EC 11:37 → 3SCARD 14:29
PROVIDERS: ADMIT Family Medicine; ATTEND Family Medicine
PROC: B24BZZ4 Ultrasonography of Heart with Aorta, Transesophageal (ICD-10-PCS; principal; 2019-12-23 07:15)
DX: I63.511 Cerebral infarction due to unspecified occlusion or stenosis of right middle cerebral artery (principal); I67.1 Cerebral aneurysm, nonruptured; F03.90 Unspecified dementia, unspecified severity, without behavioral disturbance, psychotic disturbance, mood disturbance, and anxiety; I11.9 Hypertensive heart disease without heart failure; J44.9 Chronic obstructive pulmonary disease, unspecified; E11.65 Type 2 diabetes mellitus with hyperglycemia; G89.29 Other chronic pain; R29.810 Facial weakness; H91.90 Unspecified hearing loss, unspecified ear; I45.10 Unspecified right bundle-branch block; I25.5 Ischemic cardiomyopathy; I25.10 Atherosclerotic heart disease of native coronary artery without angina pectoris; I65.23 Occlusion and stenosis of bilateral carotid arteries; E78.5 Hyperlipidemia, unspecified; I08.3 Combined rheumatic disorders of mitral, aortic and tricuspid valves; M54.5 Low back pain; R53.1 Weakness; R00.1 Bradycardia, unspecified; R29.6 Repeated falls; Z79.84 Long term (current) use of oral hypoglycemic drugs; Z79.899 Other long term (current) drug therapy; Z85.3 Personal history of malignant neoplasm of breast; Z87.11 Personal history of peptic ulcer disease; Z95.810 Presence of automatic (implantable) cardiac defibrillator; Z98.42 Cataract extraction status, left eye; Z98.41 Cataract extraction status, right eye; Z90.11 Acquired absence of right breast and nipple; Z98.890 Other specified postprocedural states; Z91.81 History of falling; Z92.21 Personal history of antineoplastic chemotherapy; Z92.3 Personal history of irradiation; Z88.5 Allergy status to narcotic agent; Z80.3 Family history of malignant neoplasm of breast; Z82.49 Family history of ischemic heart disease and other diseases of the circulatory system
CPT/HCPCS: 36415; 70450; 70496; 70498; 71046; 80048; 80053; 80061; 81003; 82009; 83036; 83605; 83735; 83880; 84484; 85025; 85027; 85610; 85730; 93005; 93306; 93312; 93320; 93325; 99285

== ENCOUNTER → 2020-08-26 | Outpatient (CLI) | payer MEDICARE | END | disposition home or self-care (01) | LOC: RADCTMAIN 18:30 | PROVIDERS: ATTEND Family Medicine ==

== ENCOUNTER → 2021-06-01 | Outpatient (CLI) | payer MEDICARE ==
--- NOTE | 2021-06-01 20:47 | CT ---
EXAMINATION TYPE: CT brain wo con DATE OF EXAM: 06/01/2021 COMPARISON: CT dated 09/07/2020 HISTORY: Dementia CT DLP: 1121 mGycm Automated exposure control for dose reduction was used. TECHNIQUE: CT scan of the brain is performed without IV contrast administration. FINDINGS: Partial empty sella. Stable suspected chronic left cerebellar infarct. Tiny bilateral thalamic hypode nsities, possibly representing lacunar infarcts. Bilateral cerebral white matter hypodensities more o n the left side, likely representing chronic microvascular ischemic changes. Brain volume loss change s, likely age-related. Arterial atherosclerotic calcifications. No acute intracranial hemorrhage. No gross acute cortical infarct. No midline shift, herniation or ve ntriculomegaly. Unremarkable basal cisterns and CP angles. No gross space-occupying lesion, vasogenic edema or mass effect. Unremarkable orbits. Clear visualized paranasal sinuses and mastoid air cells. Unremarkable calvarial bones. IMPRESSION: Brain volume loss changes, chronic ischemic changes and suspected chronic infarcts as described above . No acute intracranial hemorrhage or gross acute cortical infarct. No gross space-occupying lesion b y this nonenhanced CT scan. Further MRI assessment can be considered if clinically required.
== END | disposition home or self-care (01) ==
LOC: RADCTMAIN 16:07
PROVIDERS: ATTEND Psychiatry & Neurology Neurology
DX: I67.82 Cerebral ischemia (principal); F03.90 Unspecified dementia, unspecified severity, without behavioral disturbance, psychotic disturbance, mood disturbance, and anxiety
CPT/HCPCS: 70450

== ENCOUNTER 2024-03-03 16:03 | Emergency (ER) | payer MEDICARE ==
[2024-03-03 16:12] VITALS: RESP 20; TEMP 97.3
[2024-03-03] MEDS: SODIUM CHLORIDE 0.9% 1,000 ML IV STA ×2 (16:23→18:19)
--- NOTE | 2024-03-03 16:23 | ED ---
Weakness HPI - General Chief complaint: Weakness Stated complaint: Altered Mental Status Time Seen by Provider: 03/03/24 16:14 Source: EMS, RN notes reviewed, old records reviewed, Caregiver Mode of arrival: EMS Limitations: no limitations, altered mental status, physical limitation - History of Present Illness Initial comments: This is an 88-year-old female with long history of CVA on medical history coming in for increased weakness altered mental status may be diminished appetite. Patient is a poor historian secondary to prior CVA history obtained from daughter at bedside, patient is not on blood thinners does take daily aspirin MD Complaint: generalized weakness, lack of energy, difficulty walking -: hour(s) Location: generalized Severity: moderate Severity scale (1-10): 7 Consistency: constant Improves with: none Worsens with: none Context: recent illness, history of similar Associated Symptoms: confusion - Related Data Home Medications Medication Instructions Recorded Confirmed Glimepiride 4 mg PO HS 08/12/15 12/19/19 Multivitamins, Thera [Multivitamin 1 tab PO HS 08/12/15 12/19/19 (formulary)] Ascorbic Acid [Vitamin C] 500 mg PO DAILY 12/19/19 12/19/19 Carvedilol 25 mg PO HS 12/19/19 12/19/19 Cholecalciferol [Vitamin D3 (25 1,000 unit PO HS 12/19/19 12/19/19 Mcg = 1000 Iu)] Cyanocobalamin (Vitamin B-12) 2,500 mcg PO HS 12/19/19 12/19/19 [Vitamin B-12] Ferrous Sulfate [Iron (65 MG 325 mg PO HS 12/19/19 12/19/19 Elemental)] Fish Oil/Dha/Epa [Fish Oil 1,200 1 tab PO HS 12/19/19 12/19/19 mg Fish Oil] Memantine [Namenda] 10 mg PO HS 12/19/19 12/19/19 Mv-Min/Folic/Vit K/Lut/Loxe860 1 tab PO HS 12/19/19 12/19/19 [Alive Women's 50 Plus Tablet] Naproxen Sodium [Aleve] 220 mg PO HS PRN 12/19/19 12/19/19 Potassium Gluconate [Potassium 99 mg PO HS 12/19/19 12/19/19 Gluconate ER] Spironolactone [Aldactone] 25 mg PO HS 12/19/19 12/19/19 Ubidecarenone [Co Q-10] 200 mg PO HS 12/19/19 12/19/19 Zinc Gluconate [Zinc] 50 mg PO HS 12/19/19 12/19/19 metFORMIN HCL 500 mg PO HS 12/19/19 12/19/19 Timolol 0.5% Ophth Soln [Timoptic 1 drop OPHTHALMIC DAILY 12/21/19 12/21/19 0.5% Ophth Soln] Travoprost [Travoprost 0.004%] 1 drop BOTH EYES HS 12/21/19 12/21/19 Previous Rx's Medication Instructions Recorded Aspirin 325 mg PO DAILY tab 12/25/19 Atorvastatin [Lipitor] 40 mg PO HS #30 tab 12/25/19 Losartan [Cozaar] 50 mg PO DAILY #30 tab 12/25/19 Allergies Allergy/AdvReac Type Severity Reaction Status Date / Time codeine AdvReac Nausea & Verified 03/03/24 16:12 Vomiting Review of Systems ROS Statement: Those systems with pertinent positive or pertinent negative responses have been documented in the HPI. ROS Other: All systems not noted in ROS Statement are negative. Past Medical History Past Medical History: Cancer, COPD, CVA/TIA, Diabetes Mellitus, Hyperlipidemia, Pneumonia Additional Past Medical History / Comment(s): HX OF BREAST CANCER, CHRONIC BACK PAIN, HX OF STOMACH ULCER., SEE Dr Rodriguez H&P, brain bleed, nothing R side History of Any Multi-Drug Resistant Organisms: None Reported Past Surgical History: AICD, Breast Surgery, Heart Catheterization, Pacemaker Additional Past Surgical History / Comment(s): BILATERAL CATARACT. RIGHT MASTECTOMY., MARV SHOULDER SURGERY. VENOGRAM Past Anesthesia/Blood Transfusion Reactions: No Reported Reaction Type of Cardiac Device: AICD Device Placement Date:: 01/2016 Past Psychological History: No Psychological Hx Reported Smoking Status: Never smoker Past Alcohol Use History: Occasional Past Drug Use History: None Reported - Past Family History Daughter(s) Family Medical History: Cancer Additional Family Medical History / Comment(s): BREAST CANCER Son(s) Family Medical History: Coronary Artery Disease (CAD) Additional Family Medical History / Comment(s): CARDIAC STENT. Sister(s) Family Medical History: Cancer Additional Family Medical History / Comment(s): BREAST CANCER. General Exam Limitations: no limitations General appearance: alert, in no apparent distress Head exam: Present: atraumatic, normocephalic, normal inspection Eye exam: Present: normal appearance, PERRL, EOMI. Absent: scleral icterus, conjunctival injection, periorbital swelling ENT exam: Present: normal exam, mucous membranes moist Neck exam: Present: normal inspection. Absent: tenderness, meningismus, lymphadenopathy Respiratory exam: Present: normal lung sounds bilaterally. Absent: respiratory distress, wheezes, rales, rhonchi, stridor Cardiovascular Exam: Present: regular rate, normal rhythm, normal heart sounds. Absent: systolic murmur, diastolic murmur, rubs, gallop, clicks GI/Abdominal exam: Present: soft, normal bowel sounds. Absent: distended, tenderness, guarding, rebound, rigid Extremities exam: Present: normal inspection, full ROM, normal capillary refill. Absent: tenderness, pedal edema, joint swelling, calf tenderness Back exam: Present: normal inspection Neurological exam: Present: alert, oriented X3, CN II-XII intact Psychiatric exam: Present: normal affect, normal mood Skin exam: Present: warm, dry, intact, normal color. Absent: rash Course Vital Signs 03/03/24 03/03/24 16:07 17:11 Temperature 97.3 F L Pulse Rate 72 63 Respiratory 20 20 Rate Blood Pressure 146/112 136/69 O2 Sat by Pulse 98 93 L Oximetry - Reevaluation(s) Reevaluation #1: 03/03/24 17:19 Medical records reviewed Reevaluation #2: 03/03/24 18:18 Patient is showing improvement here in the ER Reevaluation #3: 03/03/24 18:18 Patient informed of results questions answered patient refuses hospital admission Reevaluation #4: Was pt. sent in by a medical professional or institution (, PA, OIL DISPENSER, urgent care, hospital, or [facility]...) When possible be specific @ -no Did you speak to anyone other than the patient for history (EMS, parent, family, police, friend...)? What history was obtained from this source @ -no Did you review nursing and triage notes (agree or disagree)? Why? @ -agree Are old charts reviewed (outside hosp., previous admission, EMS record, old EKG, old radiological studies, urgent care reports/EKG's, [facility] records)? Report findings @ -yes Differential Diagnosis (chest pain, altered mental status, abdominal pain women, abdominal pain men, vaginal bleeding, weakness, fever, dyspnea, syncope, headache, dizziness, GI bleed, back pain, seizure, CVA, palpatations, mental health, musculoskeletal)? @ -prior EKG interpreted by me (3pts min.). @ -yes X-rays interpreted by me (1pt min.). @ -yes negative for acute disease CT interpreted by me (1pt min.). @ -no U/S interpreted by me (1pt. min.). @ -no What testing was considered but not performed or refused? (CT, X-rays, U/S, labs)? Why? @ -none What meds were considered but not given or refused? Why? @ -none Did you discuss the management of the patient with other professionals (professionals i.e. , PA, OIL DISPENSER, lab, RT, psych nurse, social welfare clerk, lawyer probate, teacher, flight radio officer, rn case mgr)? Give summary @ -no Was smoking cessation discussed for >3mins.? @ -no Was critical care preformed (if so, how long)? @ -no Were there social determinants of health that impacted care today? How? (Homelessness, low income, unemployed, alcoholism, drug addiction, transportation, low edu. Level, literacy, decrease access to med. care, long-term, rehab)? @ -none Was there de-escalation of care discussed even if they declined (Discuss DNR or withdrawal of care, Hospice)? DNR status @ -no What co-morbidities impacted this encounter? (DM, HTN, Smoking, COPD, CAD, Cancer, CVA, ARF, Chemo, Hep., AIDS, mental health diagnosis, sleep apnea, morbid obesity)? @ -none Was patient admitted / discharged? Hospital course, mention meds given and route, prescriptions, significant lab abnormalities, going to OR and other pertinent info. @ - Undiagnosed new problem with uncertain prognosis? @ -no Drug Therapy requiring intensive monitoring for toxicity (Heparin, Nitro, Insulin, Cardizem)? @ -no Were any procedures done? @ -no Diagnosis/symptom? @ - Acute, or Chronic, or Acute on Chronic? @ -Acute Uncomplicated (without systemic symptoms) or Complicated (systemic symptoms)? @ -Complicated Side effects of treatment? @ -no Exacerbation, Progression, or Severe Exacerbation? @ -exacerbation Poses a threat to life or bodily function? How? (Chest pain, USA, PR, pneumonia, PE, COPD, DKA, ARF, appy, cholecystitis, CVA, Diverticulitis, Homicidal, Suicidal, threat to staff... and all critical care pts) @ -yes Reevaluation #5: Differential Altered Mental Status: Hypoglycemia, DKA, hypercapnia, ETOH, overdose, CO poisoning, trauma, myxedema coma, HTN encephalopathy, infection, encephalitis, psychosis, intercranial hemorrhage, hepatic encephalopathy, meningitis, CVA, this is not meant to be an all-inclusive list EKG Findings - EKG Comments: EKG Findings:: EKG is paced 72 OK 121 QRS 138 QTc 468 - EKG Results: EKG: interpreted by MARIBEL Medical Decision Making - Medical Decision Making 88 female for weakness positive for coronavirus. Patient is given hydration here in the ER feels improved, patient does not want to stay in the hospital at this time she is capable of making her own medical decisions and will be discharged home - Lab Data Result diagrams: 03/03/24 16:20 03/03/24 16:20 Lab Results 03/03/24 03/03/24 03/03/24 Range/Units 16:20 16:20 16:20 WBC 7.0 (3.8-10.6) k/uL RBC 3.49 L (3.80-5.40) m/uL Hgb 11.5 (11.4-16.0) gm/dL Hct 34.2 (34.0-46.0) % MCV 98.1 (80.0-100.0) fL MCH 32.8 (25.0-35.0) pg MCHC 33.5 (31.0-37.0) g/dL RDW 14.1 (11.5-15.5) % Plt Count 180 (150-450) k/uL MPV 10.0 Neutrophils % 68 % Lymphocytes % 20 % Monocytes % 8 % Eosinophils % 2 % Basophils % 0 % Neutrophils # 4.7 (1.3-7.7) k/uL Lymphocytes # 1.4 (1.0-4.8) k/uL Monocytes # 0.6 (0-1.0) k/uL Eosinophils # 0.2 (0-0.7) k/uL Basophils # 0.0 (0-0.2) k/uL PT 12.0 (10.0-12.5) sec INR 1.1 (<1.2) APTT 21.0 L (22.0-30.0) sec Sodium 136 L (137-145) mmol/L Potassium 4.4 (3.5-5.1) mmol/L Chloride 101 (98-107) mmol/L Carbon Dioxide 21 L (22-30) mmol/L Anion Gap 14 mmol/L BUN 19 H (7-17) mg/dL Creatinine 0.65 (0.52-1.04) mg/dL Est GFR (CKD-EPI)AfAm >90 (>60 ml/min/1.73 sqM) Est GFR (CKD-EPI)NonAf 80 (>60 ml/min/1.73 sqM) Glucose 253 H (74-99) mg/dL Plasma Lactic Acid Barry (0.7-2.0) mmol/L Calcium 9.6 (8.4-10.2) mg/dL Phosphorus 3.5 (2.5-4.5) mg/dL Magnesium 1.2 L (1.6-2.3) mg/dL Total Bilirubin 0.5 (0.2-1.3) mg/dL AST 27 (14-36) U/L ALT 25 (4-34) U/L Alkaline Phosphatase 83 (38-126) U/L Troponin I (0.000-0.034) ng/mL NT-Pro-B Natriuret Pep 777 pg/mL Total Protein 6.9 (6.3-8.2) g/dL Albumin 4.3 (3.5-5.0) g/dL TSH 1.590 (0.465-4.680) mIU/L Influenza Type A (PCR) (Not Detectd) Influenza Type B (PCR) (Not Detectd) RSV (PCR) (Not Detectd) SARS-CoV-2 (PCR) (Not Detectd) 03/03/24 03/03/24 03/03/24 Range/Units 16:20 16:20 16:20 WBC (3.8-10.6) k/uL RBC (3.80-5.40) m/uL Hgb (11.4-16.0) gm/dL Hct (34.0-46.0) % MCV (80.0-100.0) fL MCH (25.0-35.0) pg MCHC (31.0-37.0) g/dL RDW (11.5-15.5) % Plt Count (150-450) k/uL MPV Neutrophils % % Lymphocytes % % Monocytes % % Eosinophils % % Basophils % % Neutrophils # (1.3-7.7) k/uL Lymphocytes # (1.0-4.8) k/uL Monocytes # (0-1.0) k/uL Eosinophils # (0-0.7) k/uL Basophils # (0-0.2) k/uL PT (10.0-12.5) sec INR (<1.2) APTT (22.0-30.0) sec Sodium (137-145) mmol/L Potassium (3.5-5.1) mmol/L Chloride (98-107) mmol/L Carbon Dioxide (22-30) mmol/L Anion Gap mmol/L BUN (7-17) mg/dL Creatinine (0.52-1.04) mg/dL Est GFR (CKD-EPI)AfAm (>60 ml/min/1.73 sqM) Est GFR (CKD-EPI)NonAf (>60 ml/min/1.73 sqM) Glucose (74-99) mg/dL Plasma Lactic Acid Barry 4.1 H* (0.7-2.0) mmol/L Calcium (8.4-10.2) mg/dL Phosphorus (2.5-4.5) mg/dL Magnesium (1.6-2.3) mg/dL Total Bilirubin (0.2-1.3) mg/dL AST (14-36) U/L ALT (4-34) U/L Alkaline Phosphatase (38-126) U/L Troponin I <0.012 (0.000-0.034) ng/mL NT-Pro-B Natriuret Pep pg/mL Total Protein (6.3-8.2) g/dL Albumin (3.5-5.0) g/dL TSH (0.465-4.680) mIU/L Influenza Type A (PCR) Not Detected (Not Detectd) Influenza Type B (PCR) Not Detected (Not Detectd) RSV (PCR) Not Detected (Not Detectd) SARS-CoV-2 (PCR) Detected A (Not Detectd) - Radiology Data Radiology results: report reviewed (CT brain chest x-ray negative for acute disease), image reviewed Disposition Clinical Impression: Weakness, Coronavirus infection, Dehydration Disposition: HOME SELF-CARE Condition: Fair Instructions (If sedation given, give patient instructions): Coronavirus Disease 2019 (COVID-19), Dehydration (ED) Is patient prescribed a controlled substance at d/c from ED?: No Referrals: Reji Montgomery MD [Primary Care Provider] - 1-2 days Time of Disposition: 18:30
[2024-03-03 16:35] LABS: Basophils % (A) 0 %; Eosinophils # (A) 0.2 k/uL (0-0.7); Eosinophils % (A) 2 %; HCT 34.2 % (34.0-46.0); HGB 11.5 gm/dL (11.4-16.0); Lymphocytes # (A) 1.4 k/uL (1.0-4.8); Lymphocytes % (A) 20 %; MCH 32.8 pg (25.0-35.0); MCHC 33.5 g/dL (31.0-37.0); MCV 98.1 fL (80.0-100.0); Monocytes # (A) 0.6 k/uL (0-1.0); Monocytes % (A) 8 %; Neutrophils # (A) 4.7 k/uL (1.3-7.7); Neutrophils % (A) 68 %; Platelet Count 180 k/uL (150-450); RBC 3.49 m/uL (3.80-5.40); RDW 14.1 % (11.5-15.5)
[2024-03-03 16:43] LABS: INR 1.1 (<1.2)
[2024-03-03 16:44] LABS: ALT 25 U/L (4-34); AST 27 U/L (14-36); African American GFR (CKD) >90 (>60 ml/min/1.73 sqM); Albumin 4.3 g/dL (3.5-5.0); Alkaline Phosphatase 83 U/L (38-126); Anion Gap 14 mmol/L; Blood Urea Nitrogen 19 mg/dL (7-17); Calcium 9.6 mg/dL (8.4-10.2); Carbon Dioxide 21 mmol/L (22-30); Chloride 101 mmol/L (98-107); Glucose 253 mg/dL (74-99); Magnesium 1.2 mg/dL (1.6-2.3); Non-African American GFR(CKD) 80 (>60 ml/min/1.73 sqM); Phosphorus 3.5 mg/dL (2.5-4.5); Potassium 4.4 mmol/L (3.5-5.1); Sodium 136 mmol/L (137-145); Total Bilirubin 0.5 mg/dL (0.2-1.3); Total Protein 6.9 g/dL (6.3-8.2)
[2024-03-03 16:53] LABS: NT-Pro-B-Type Natriuretic Pept 777 pg/mL
--- NOTE | 2024-03-03 17:09 | XR ---
EXAMINATION TYPE: XR chest 2V DATE OF EXAM: 03/03/2024 4:38 PM COMPARISON: None CLINICAL INDICATION: Female, 88 years old with history of weak; [facility] TECHNIQUE: XR chest 2V Frontal and lateral views of the chest. FINDINGS: Lungs/Pleura: There is no evidence of pleural effusion, focal consolidation, or pneumothorax. Pulmonary vascularity: Unremarkable. Heart/mediastinum: Cardiomediastinal silhouette is unremarkable. Three lead cardiac conduction device overlying the left hemithorax with lead tips projecting over the right ventricle, right atrium and c oronary sinus. Musculoskeletal: No acute osseous pathology. IMPRESSION: No acute cardiopulmonary disease/process. [facility], , 03/03/2024 5:06 PM
[2024-03-03 17:10] LABS: Influenza A Not Detected (Not Detectd); Influenza B Not Detected (Not Detectd); RSV Not Detected (Not Detectd)
--- NOTE | 2024-03-03 18:12 | CT ---
EXAMINATION TYPE: CT brain wo con DATE OF EXAM: 03/03/2024 5:35 PM COMPARISON: 06/01/2021. CLINICAL INDICATION: Female, 88 years old with history of ams, Lethargy, history of CVA TECHNIQUE: Brain: Axial CT images of the brain were obtained with coronal and sagittal reformats created and rev iewed. Contrast used: None. Oral contrast used: None. CT DLP: 1096.4 mGycm, Automated exposure control for dose reduction was used. FINDINGS: Brain: Extra-axial spaces: No abnormal extra-axial fluid collections. Ventricular system: Dilatation in proportion to cerebral atrophy. Cerebral parenchyma: Cerebral atrophy. No acute intraparenchymal hemorrhage or mass effect. The schwartz -white junction is well differentiated. Scattered hypoattenuating areas are seen within the white mat ter. Cerebellum: Remote appearing left cerebellar injury.. Mass effect: No evidence of midline shift. Intracranial vasculature: unremarkable Soft tissues: Normal. Calvarium/osseous structures: No depressed skull fracture. Paranasal sinuses and mastoid air cells: Mild scattered paranasal sinus disease. Visualized orbits: Orbital contents are intact. IMPRESSION: No acute intracranial process. Remote left cerebellar injury. [facility], , 03/03/2024 6:09 PM
[2024-03-03] MEDS: SODIUM CHLORIDE 0.9% 500 ML 500 ML IV STA (18:24)
[2024-03-03] MEDS: DEXAMETHASONE SOD PHOSPHATE 10 MG/ML 1 ML VIAL IVP STA (18:26)
[2024-03-03 18:32] LABS: Appearance,Urine Clear (Clear); Bilirubin,Urine Negative (Negative); Blood,Urine Negative (Negative); Color,Urine Colorless; Glucose,Urine (UA) 3+ (Negative); Ketones,Urine Negative (Negative); Leukocyte Esterase,Urine Negative (Negative); Nitrite,Urine Negative (Negative); Protein,Urine Negative (Negative); Specific Gravity,Urine 1.009 (1.001-1.035); Urobilinogen,Urine <2.0 mg/dL (<2.0)
[2024-03-03] MEDS: ACETAMINOPHEN IV (For NPO) 1,000 MG in EMPTY BAG 1 BAG IVPB STA (18:38)
[2024-03-03 19:21] VITALS: BP 187/76; PULSE 68
== END 2024-03-03 19:22 | disposition home or self-care (01) ==
LOC: EC 16:03
DX: U07.1 COVID-19 (principal); E86.0 Dehydration; Z88.5 Allergy status to narcotic agent
CPT/HCPCS: 36415; 83880; 80053; 83605; 83735; 84100; 84443; 84484; 85025; 85610; 85730; 81003; 87636; 71046; 70450; 99285; 96365; 96375; 96361; J1100; J0131